=== PATIENT | female | born 2000 | race Caucasian/White ===

== ENCOUNTER 2021-04-17 14:47 | Emergency (ER) | payer OTHER, SELFPAY ==
--- NOTE | ~2021-04-17 | XR_ITS ---
EXAMINATION: XR knee LT 3V EXAM DATE: 04/17/2021 15:18 INDICATION: fall 3 days ago. TECHNIQUE: Three projections of the left knee. There is no prior study for comparison. FINDINGS: No evidence osteochondral defect or joint body in the left knee joint. There are no acute fractures or dislocations identified. There is no subcutaneous gas. The soft tissue is unremarkab le. There are no radiopaque foreign bodies. No joint effusion. IMPRESSION: 1. Unremarkable left knee exam. Reviewed, dictated and finalized at location B.
[2021-04-17 15:02] VITALS: BP 133/89; PULSE 83; RESP 16; TEMP 36.6; O2SAT 100
--- NOTE | 2021-04-17 15:46 | ED.LOWEXIN ---
HPI - Extremity Injury (Lower) General Chief Complaint: Extremity Injury, Lower Stated Complaint: lt knee injury Source: patient Mode of arrival: ambulatory Limitations: no limitations History of Present Illness HPI Narrative: Patient is a 20-year-old female who presents complaining of left knee pain. Patient reports twisting knee approximately 2 to 3 days ago. She reports using knee brace. She states it feels weird . She reports rest, ice and elevation. She denies other injuries. She denies other complaints at this time. Related Data Home Medications Medication Instructions Recorded Confirmed No Home Medications 04/17/21 04/17/21 Allergies Allergy/AdvReac Type Severity Reaction Status Date / Time No Known Allergies Allergy Verified 04/17/21 15:19 Review of Systems Review of Systems: CONSTITUTIONAL: Denies fever, chills, or sweats. EYES: Denies visual changes, redness, or discharge. ENT: Denies rhinorrhea, congestion, sore throat, or otalgia. CARDIOVASCULAR: Denies chest pain, palpitations, or edema. RESPIRATORY: Denies cough or dyspnea. GASTROINTESTINAL: Denies abdominal pain, nausea, vomiting, or diarrhea. GENITOURINARY: Denies dysuria or hematuria. SKIN: Denies rash or itching. MUSCULOSKELETAL: Reports left knee pain NEUROLOGIC: Denies headache, numbness, dizziness, or weakness. PSYCHIATRIC: Denies anxiety or depression. [facility] Social History Social History (Updated 04/17/21 @ 15:55 by SALLY Alonso) Smoking status: Never smoker Alcohol intake: never Substance use: never Occupation/Education: student Comments At the time of signature, I have reviewed and agree with nursing past medical, surgical, social, and family history unless otherwise noted. Please see nursing chart for further information. There is no relevant family history pertinent to the presenting complaint. Exam Narrative: GENERAL: Well-appearing, well-nourished, and in no acute distress. HEAD: Normocephalic, atraumatic. EYES: EOMI. No redness or drainage. Conjunctiva are normal. ENT: Mucous membranes pink and moist. CHEST: No respiratory distress. HEART: Regular rate and rhythm. EXTREMITIES: Normal range of motion. No edema. Tenderness with palpation to left medial knee. No visible deformities, no edema noted SKIN: Warm, dry, no rash. NEURO: No focal deficits. Alert and oriented x3. Gait steady. PSYCH: Normal affect. No signs of depression or anxiety. Course Vital Signs Vital signs: Vital Signs Temperature 36.6 C 04/17/21 15:02 Pulse Rate 83 04/17/21 15:02 Respiratory Rate 16 04/17/21 15:02 Blood Pressure 133/89 04/17/21 15:02 Pulse Oximetry 100 04/17/21 15:02 Temperature 36.6 C 04/17/21 15:02 Pulse Rate 83 04/17/21 15:02 Respiratory Rate 16 04/17/21 15:02 Blood Pressure 133/89 04/17/21 15:02 Pulse Oximetry 100 04/17/21 15:02 Reviewed-patient is informed that they may have pre-hypertension or hypertension based on a blood pressure reading. I recommend the patient call the primary care provider listed on their discharge instructions or a physician of their choice this week to arrange follow-up for further evaluation of possible pre-hypertension or hypertension. MDM - Extremity Injury (Lower) MDM Narrative Medical decision making narrative: Patient's x-ray shows no acute osseous abnormality. Discussed with patient following up with orthopedics for further evaluation. Patient agrees with plan of care. Patient is stable for discharge home with outpatient follow-up as discussed. Critical Care Time Critical Care Time Critical Care Time: No Discharge Plan Discharge Clinical Impression: Knee pain Qualifiers: Chronicity: acute Laterality: left Qualified Code(s): M25.562 - Pain in left knee Patient Disposition: Home, Self-Care Condition: Stable Instructions: Knee Sprain (DC), Knee Pain (ED) Additional Instructions: Use Ulices wrap for comfort. Follow-up
== END 2021-04-17 16:00 | disposition home or self-care (01) ==
PROVIDERS: Emergency Provider Nurse Practitioner
DX: M25.562 Pain in left knee (principal)
CPT/HCPCS: 73562; 99213; G0463

== ENCOUNTER 2021-05-08 14:33 | Outpatient (CLI) | payer OTHER, SELFPAY ==
--- NOTE | ~2021-05-08 | MR_ITS ---
EXAMINATION: MR knee LT wo con DATE: 05/08/2021 15:23 INDICATION: Unspecified left lower leg injury presenting with medial left knee pain TECHNIQUE: Magnetic resonance imaging (MRI) of the left knee was performed without intravenous contra st. Sequences included coronal PD-weighted FSE, coronal PD-weighted FS FSE, sagittal T2-weighted FSE , sagittal PD-weighted FS FSE and axial PD weighted fat saturated FSE. COMPARISON: None. FINDINGS: Medial compartment: Medial meniscus is normal. Articular cartilage is normal. Lateral compartment: Lateral meniscus is normal. Articular cartilage is normal. Patellofemoral compartment: Articular cartilage is normal. Ligaments and tendons: Anterior and posterior cruciate ligaments are normal. The fibular collateral ligament complex is norm al. There is increased fluid signal extending along the deep and superficial margin of the medial col lateral ligament. The ligament appears thickened distally with a 2 cm at and below the level of the k nee joint line and appears attenuated more distally consistent with at least moderate grade sprain (p artial tear) of the distal tendon. There does appear to be some laxity with a wavy course to the liga ment at and slightly above level of the joint line which suggests possibility of a full-thickness tea r. The patellar tendon is normal. Mild tendinopathy without discrete tear at the lateral patellar ins ertion of the distal quadriceps tendon. The visualized medial and lateral hamstring tendons as well a s the iliotibial band are normal. Fluid: Physiologic amount of fluid in the joint space. No loose osteochondral bodies identified. Osseous/other: There is marrow edema surrounding a small nondisplaced impaction fracture along the lateral rim of th e posterior weightbearing lateral femoral condyle with small low signal intensity subarticular fractu re line. No signal is otherwise normal. No pathologic marrow replacing process. IMPRESSION: 1. High-grade partial if not complete tear of the distal medial collateral ligament. 2. Small nondisplaced impaction fracture along the lateral rim of the posterior weightbearing lateral femoral condyle. Reviewed, dictated and finalized at location B. IMPRESSION: 1. High-grade partial if not complete tear of the distal medial collateral liga ment. 2. Small nondisplaced impaction fracture along the lateral rim of the posterior weightbearing lateral femoral condyle.
== END 2021-05-08 14:34 ==
PROVIDERS: Visit Provider Orthopaedic Surgery
DX: S89.92XA Unspecified injury of left lower leg, initial encounter (principal); S83.412A Sprain of medial collateral ligament of left knee, initial encounter; S72.425A Nondisplaced fracture of lateral condyle of left femur, initial encounter for closed fracture
CPT/HCPCS: 73721

== ENCOUNTER 2021-11-09 14:05 | Emergency (ER) | payer OTHER, SELFPAY ==
--- NOTE | ~2021-11-09 | XR_ITS ---
EXAMINATION: XR wrist LT min 3V EXAM DATE: 11/09/2021 14:53 INDICATION: gen Pain Lt wrist x several months; no injury. TECHNIQUE: Left wrist frontal, frontal with ulnar deviation, oblique and lateral projections obtained and reviewed. There is no prior study for comparison. FINDINGS: Left wrist scapholunate joint space is maintained. There is ulnar minus variance. There ar e no acute fractures or dislocations identified. There is no subcutaneous gas. The soft tissue is u nremarkable. There are no radiopaque foreign bodies. The joint spaces are uniform. There are no sergio ny erosions identified. IMPRESSION: Ulnar minus variance. Reviewed, dictated and finalized at location A. IMPRESSION: Ulnar minus variance.
[2021-11-09 14:12] VITALS: BP 146/85; PULSE 85; RESP 16; TEMP 36.4; O2SAT 98
--- NOTE | 2021-11-09 14:29 | ED.EXTPRO ---
HPI - Extremity Problem General Chief complaint: Extremity Problem,Nontraumatic Stated complaint: Left wrist pain Time Seen by Provider: 11/09/21 14:22 Source: patient, RN notes reviewed and old records reviewed Mode of arrival: ambulatory Limitations: no limitations History of Present Illness HPI Narrative: 30 year old female who presents to express care with complaints of discomfort to the inner aspect of her left wrist since around middle part of August with no known injury to her wrist. Patient denies any tingling or numbness to her hand or fingers, states pain is worse with movement. Patient is able to make a fist with no pain,able to hyperflex wrist with no pain, but extension of wrist causes increase in her pain. Patient reports that she has not taken anything for her pain, denies any know swelling to her wrist or any coldness of left hand. patient is right hand dominant. MD Complaint: extremity pain (left wrist) Onset (ago): month(s) (3) Pain Consistency: intermittent Location: left and upper extremity (inner wrist) Severity scale (1-10): 7 Quality: other (shooting pain) Related Data Home Medications Medication Instructions Recorded Confirmed No Home Medications 04/17/21 11/09/21 Allergies Allergy/AdvReac Type Severity Reaction Status Date / Time No Known Allergies Allergy Verified 11/09/21 14:12 Review of Systems Review of Systems: CONSTITUTIONAL: Denies fever, chills, or sweats. EYES: Denies visual changes, redness, or discharge. ENT: Denies rhinorrhea, congestion, sore throat, or otalgia. CARDIOVASCULAR: Denies chest pain, palpitations, or edema. RESPIRATORY: Denies cough or dyspnea. GASTROINTESTINAL: Denies abdominal pain, nausea, vomiting, or diarrhea. GENITOURINARY: Denies dysuria or hematuria. SKIN: Denies rash or itching. MUSCULOSKELETAL: Denies back pain, positive for left inner wrist pain, or myalgia. NEUROLOGIC: Denies headache, numbness, or weakness. PSYCHIATRIC: Denies anxiety or depression. All systems reviewed & are unremarkable except as noted in HPI and below PMFSH Past Medical History Medical History Chills Congestion of nasal sinus Fever Left knee injury Surgical History Surgical History H/O elbow surgery repair of fracture of left radial head with hardware Social History Social History Smoking status: Never smoker Alcohol intake: current Substance use: never Substance use type: does not use Gender identity (if verbalized by the patient): Female Comments At time of signature, agree with nursing past medical, surgical, social and family history. There is no relevant family history pertinent to the presenting complaint Exam Narrative: GENERAL: Well-appearing, well-nourished, and in no acute distress. HEAD: Normocephalic, atraumatic. EYES: PERRLA and EOMI. ENT: Nares clear, no rhinorrhea or epistaxis. Mucous membranes moist.TM's normal with good light reflex, throat pink with no exudates or lesions or tonsil swelling NECK: Supple. no lymphadenopathy CHEST: Clear to auscultation. No respiratory distress SAO2 98% on room air. HEART: Regular rate and rhythm. No murmur heard. Normal peripheral pulses. ABDOMEN: Soft, nontender, nondistended, normal active bowel sounds. EXTREMITIES: Normal range of motion. No edema noted, reports pain to inner left wrist with flexion of her left wrist, denies any pain with hyper extension left wrist and make a fist with no pain but has pain with flexion of hand, denies any tingling or numbness to finger with full mobility of fingers without discomfort. SKIN: Warm, dry, no rash. NEURO: No focal deficits. Alert and oriented x3. Course Course Level of Care: Express Care Visit Vital Signs Vital signs: Vital Signs Temperature 36.4 C L 11/09/21 14:12 Pulse Rate 85 11/09/21
== END 2021-11-09 15:17 | disposition home or self-care (01) ==
PROVIDERS: Emergency Provider Registered Nurse
DX: M25.532 Pain in left wrist (principal)
CPT/HCPCS: 73110; 99213; G0463

== ENCOUNTER 2024-09-19 14:31 | Emergency (ER) | payer OTHER, SELFPAY ==
--- NOTE | ~2024-09-19 | XR_ITS ---
CHEST RADIOGRAPH, PA AND LATERAL CLINICAL HISTORY: left sided back pain . COMPARISON: None available TECHNIQUE: PA and lateral views of the chest. FINDINGS The cardiomediastinal silhouette is unremarkable. The lungs are clear. Visualized osseous structures and soft tissues are unremarkable. IMPRESSION: No focal infiltrate or effusion. Reviewed, dictated and finalized at location A. LE HOUSE PUMPER
--- OUTSIDE RECORDS SUMMARY | 2024-09-19 14:33 | XMS_ITS | Clinical Summary ---
Author Organization [address] Address [address] [facility] [address] [place] [address] Care Team Providers Care Stapler Machine Name Role Phone Lucio, Maribel BENNETT Primary Care Provider [phone] Allergies No known active allergies Medications escitalopram (LEXAPRO) 10 mg tabletIndicatio ns:ANGEL (generalized anxiety disorder),Mild episode of recurrent major depressive disorder (HCC) Take 1 tablet (10 mg total) by mouth daily 30 tablet 1 08/06/2024 Active cyanocobalamin (Vitamin B-12) 1,000 mcg tabletIndicatio ns:Prevention of Vitamin B12 Deficiency Take 1 tablet (1,000 mcg total) by mouth daily Active cholecalciferol (VITAMIN D-3) 2000 unit capsule Take 1 capsule (2,000 Units total) by mouth daily Active ibuprofen 200 mg tab/cap Take 2 tablet/capsu le (400 mg total) by mouth every 6 (six) hours as needed for pain Active metroNIDAZOLE (FLAGYL) 500 mg tablet Take 1 tablet (500 mg total) by mouth 2 (two) times a day for 7 days 14 tablet 08/18/2024 08/25/19 25 Active Problems No known active problems Encounters Date Type Department Care Team Description 09/11/2024 10:01 AM GEL COATER Anesthesia Event [facility] [place] [address] [place] [address] Rolando Koenig MD Leavell, Michael E., MD 09/11/2024 9:50 AM GEL COATER - 09/11/2024 10:55 AM GEL COATER Surgery [facility] [place] [address] [place] [address] Maximo Seay IV, MD EXCISION LEFT THIGH MASS 09/11/2024 7:09 AM GEL COATER - 09/11/2024 12:04 PM GEL COATER Hospital Encounter [facility] [place] [address] [place] [address] Maximo Seay IV, MD Mass of left thigh Discharge Disposition: Discharge to home or self care 09/08/2024 10:30 AM GEL COATER Office Visit [facility] [address] [facility] [address] [place] [phone] Maribel Valdes NP ANGEL (generalized anxiety disorder) (Primary Dx); Mild episode of recurrent major depressive disorder (HCC); Vitamin B12 deficiency; Vitamin D deficiency 08/18/2024 Telephone [facility] [address] [place] [address] Arabella Hoyt LPN 08/14/2024 Telephone [facility] [address] [place] [address] Arabella Hoyt LPN 08/13/2024 11:52 AM GEL COATER - 08/13/2024 11:59 PM GEL COATER Hospital Encounter [facility] [address] [place] [address] Screening for malignant neoplasm of the cervix Discharge Disposition: Discharge to home or self care 08/13/2024 11:50 AM GEL COATER Lab [facility] [address] [place] [address] Oligomenorrhea, unspecified type; Fatigue, unspecified type 08/13/2024 11:00 AM GEL COATER Office Visit [facility] [address] [facility] [address] [place] [address] Tiffanie Quach, Encounter for annual routine gynecological examination (Primary Dx); Screening for malignant neoplasm of the cervix; Primary oligomenorrhea 08/13/2024 Orders Only [facility] [address] [place] [address] Tiffanie Quach DO Oligomenorrhea, unspecified type (Primary Dx) 08/06/2024 11:30 AM GEL COATER Office Visit [address] [place] [address] Maribel Valdes NP Left groin mass (Primary Dx); ANGEL (generalized anxiety disorder); Mild episode of recurrent major depressive disorder (HCC) 07/13/[address] [place] [address] Maribel Valdes NP 07/07/2024 10:33 AM GEL COATER - 07/07/2024 11:59 PM GEL COATER Hospital En[place] [facility] [place] [address] [place] [phone] Left groin mass Discharge Disposition: Discharge to home or self care 06/30/2024 1:25 PM GEL COATER Lab [facility] Lab [address] [place] [address] Annual physical exam 06/30/2024 12:30 PM GEL COATER Office Visit [address] [place] [phone] Maribel Valdes NP Annual physical exam (Primary Dx); Left groin mass; Morbid obesity with BMI of 40.0-44.9, adult (HCC); Cervical cancer screening from Last 3 Months Immunizations Name Administration Dates Next Due DTaP 04/29/2007, 3,06/17/2002,03/18/2002, 01/14/2002 HPV9 05/03/2016,12/21/2015,10/21/2015 Hep A, Adult 04/29/2007 Hep A, Pediatric 03/19/2012 Hep B / HiB 03/17/2003,06/17/2002,01/14/2002 Hep B, Adolescent or Pediatric 03/18/2002 HiB 03/18/2002,01/14/2002 IPV 04/29/2007,06/17/2002,03/18/2002 ,01/14/2002 Influenza, Unspecified 06/30/2024(Deferr ed: Patient Refused),05/05/2023(Deferred: Patient Refused) MMR 04/29/2007,03/17/2003 Meningococcal B, OMV (Bexsero) 03/21/2020,2018 Meningococcal MCV4P (Menactra) 03/19/2019,2015 PPD TEST 08/02/2021,04/02/2019,03/19/2019 Pneumococcal Conjugate 7-Valent 03/17/2003,03/18,01/14/2002 Tdap 02/24/2013 Varicella 08/15/2021,07/15/2021 Surgical History Surgery Date Site/Laterality Comments ELBOW SURGERY 08/05/2016 - 08/04/2017 Left head of radial fracture screws present Medical History Medical History Date Comments GERD (gastroesophageal reflux disease) controlled with diet Depression Polycystic ovarian syndrome PCOS (polycystic ovarian syndrome) not on any medications yet Anxiety Mass of left thigh Last menstrual period (LMP) > 10 days ago ended 08/25/24 Obesity Family History Medical History Relation Name Comments Addiction problem Father ruth cardiomegly Father ruth Addiction problem Maternal Grandfather fatty liver Maternal Grandfather Cholecystitis Maternal Grandmother Addiction problem Mother tacos Ovarian cysts Mother tacos Polycystic ovary syndrome Mother tacos Relation Name Status Comments Father ruth Alive Maternal Grandfather Maternal Grandmother Mother tacos Alive Social History Tobacco Use Types Packs/Day Years Used Date Smoking Tobacco: Former Cigarettes 0.3 7.7 0 08/22/2016 - 05/22/2024 Smokeless Tobacco: Never Tobacco Cessation:Counseling Given: Not Answered Comments:Still vapes AUDIT-C Answer Date Recorded Q1: How often do you have a drink containing alc ohol? Monthly or less 09/08/2024 Q2: How many drinks containi ng alcohol do you have on a typical day when you are drinking? 1 or 2 09/08/2024 Frequency of Binge Drinking Not on file 11/2024 PHQ-2 Answer Date Recorded PHQ-2 Total Score (If total score is 3 or more points, staff should administer the PHQ-9) 0 06/30/2024 Personal Safety Answer Date Recorded Have you ever been in or are you currently in a harmful physical or emotional relationship or is someone making you feel afraid or unsafe? Denies 09/11/2024 Comments No Sex and Gender Information Value Date Recorded Sex Assigned at Not on file Legal Sex Female 10:23 AM CDT Gender Identity Female 05/19/2024 10:33 AM CDT Sexual Orientation Straight 05/19/2024 10 :33 AM CDT Obstetrics History Last Filed Vital Signs Vital Sign Reading Time Taken Comments Blood Pressure 114/67 09/11/2024 11:41 AM GEL COATER Pulse 51 09/11/2024 11:41 AM GEL COATER Temperature 36.4 C (97.5 F) 09/11/2024 11:05 AM GEL COATER Respiratory Rate 18 09/11/2024 11:4 1 AM GEL COATER Oxygen Saturation 97% 09/11/2024 11: 41 AM GEL COATER Inhaled Oxygen Concentration - - Weight 111.1 kg (244 lb 14.4 oz) 09/11/2024 8:03 AM GEL COATER Height 168.9 cm (5' 6.5 ) 09/08/2024 10 :44 AM GEL COATER Body Mass Index 38.94 09/08/2024 10:44 AM GEL COATER Plan of Treatment Upcoming Encounters Date Type Department Care Team (Latest Contact Info) Description 10/08/2024 1:55 PM GEL COATER Hospital Encounter [facility] [place] [address] [place] [address] Maximo Seay IV, MD [address] [place] [address] 10/08/2024 1:55 PM GEL COATER - 10/08/2024 3:45 PM GEL COATER Surgery [facility] [place] [address] [place] [address] Maximo Seay IV, MD [address] [place] [phone] WIDE LOCAL EXCISION 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 Scheduled Procedures Name Priority Associated Diagnoses Date/Ti me EXCISION CYST/LESION/MASS - LOWER EXTREMITY 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 10/08/2024 1:55 PM GEL COATER Health Maintenance Due Date Last Done Comments Hepatitis C Screening 2001 Regular Well Visit/Exam 18-64 2019 DTaP/Tdap/Td Vaccine (7 - Td or Tdap) 02/24/2023 02/24/2013, 04/29/2007, 03/17/2003, Additional history exists Influenza Vaccine (#1) 2025 Postp oned from 04/05/2024 (Patient declined, but will receive in the future) Depression Screening 06/30/2025 06/30/2024 Cervical Cancer Screening 08/13/2025 08/13/2024 Hepatitis B Screening Completed 03/17/2003 , 06/17/2002, 03/18/2002, Additional history exists Pneumococcal vaccine <65 Completed 003, 03/18/2002, 01/14/2002 HPV Vaccines Completed 05/03/2016, 12/03, 10/21/2015 Meningococcal B Vaccine Completed 03/21/2020, 03/19 Varicella Vaccines Completed 08/15/2021, 07/15/2021 Medical Devices Implanted Type Area Grocery Deliverer Device Identifier Shelf Expiration Date Model / Serial / Lot 2 Screws Left: Elbow Procedures Procedure Name Priority Date/Time Associated Diagnosis Comments IA AN PROCEDURE PLACEHOLDER Routine 09/11/2024 10:19 AM GEL COATER IA AN ELECTIVE SUPRAGLOTTIC AIRWAY Routine 09/11/2024 10:19 AM GEL COATER SURGICAL PATHOLOGY Routine 09/11/2024 10 :15 AM GEL COATER Mass of left thigh EXCISION CYST/LESION/MASS - LOWER EXTREMITY 09/11/2024 10:01 AM GEL COATER LEFT THIGH MASS POCT HCG, URINE Routine 09/11/2024 7:30 AM GEL COATER THINPREP PROCESSING (MOLECULAR COMPONENT) Routine 08/13/2024 2:47 PM GEL COATER Screening for malignant neoplasm of the cervix IRON PROFILE W/ IBC Routine 08/13/2024 1 1:46 AM GEL COATER Fatigue, unspecified type VITAMIN D 25 HYDROXY Routine 08/13/2024 11:46 AM GEL COATER Fatigue, unspecified type VITAMIN B12 Routine 08/13/2024 11:46 AM GEL COATER Fatigue, unspecified type ESTRADIOL Routine 08/13/2024 11:46 AM GEL COATER Oligomenorrhea, unspecified type PROLACTIN Routine 08/13/2024 11:46 AM GEL COATER Oligomenorrhea, unspecified type TOTAL TESTOSTERONE Routine 08/13/2024 11 :46 AM GEL COATER Oligomenorrhea, unspecified type LUTEINIZING HORMONE (LH) Routine 08/13/2024 11:46 AM GEL COATER Oligomenorrhea, unspecified type FOLLICLE STIMULATING HORMONE Routine 08/13/2024 11:46 AM GEL COATER Oligomenorrhea, unspecified type HEMOGLOBIN A1C Routine 08/13/2024 11:46 AM GEL COATER Oligomenorrhea, unspecified type PAP WITH REFLEX TO HIGH RISK HPV Routine 08/13/2024 11:10 AM GEL COATER Screening for malignant neoplasm of the cervix US GROIN MASS/HERNIA LEFT Schedule Routine, Read Routine (OP Routine) 07/07/2024 11:00 AM GEL COATER Left groin mass EGFR Routine 06/30/2024 1:28 PM GEL COATER Annual physical exam DIFFERENTIAL AUTO Routine 06/30/2024 1:2 8 PM GEL COATER Annual physical exam CBC WITH AUTO DIFFERENTIAL Routine 06/30/2024 1:28 PM GEL COATER Annual physical exam COMPREHENSIVE METABOLIC PANEL Routine 06/30/2024 1:28 PM GEL COATER Annual physical exam THYROID FUNCTION CASCADE Routine 06/30/2024 1:28 PM GEL COATER Annual physical exam LIPID PANEL Routine 06/30/2024 1:28 PM GEL COATER Annual physical exam from Last 3 Months Results * IA AN ELECTIVE SUPRAGLOTTIC AIRWAY, IA AN PROCEDURE PLACEHOLDER (09/11/2024 10:19 AM GEL COATER) Narrative Jamey Denny CRNA - 09/11/2024 10:19 AM GEL COATER Jamey Denny CRNA 09/11/2024 10:19 AM Airway Patient location: OR Urgency: elective Indications for airway management: anesthesia Difficult airway: no Staff: Placed by: LICENSED MASSAGE THERAPIST: Jamey Denny CRNA Emergent airway documentation: Risks and benefits discussed: yes Consent obtained: yes Consent given by: patient Airway prep: Preoxygenated: yes Patient position: sniffing Mask difficulty assessment: 1 - vent by mask Spontaneous ventilation during airway: absent Sedation level during airway: GA Final airway details: Final airway type: supraglottic airway Final supraglottic airway: classic SGA size: 4 Number of attempts: 1no Rolando Koenig MD ANESTHESIA ORDERABLE S Final Result * Surgical pathology (09/11/2024 10:15 AM GEL COATER) Tissue (Mass/Tumor/Lesio n) 09/11/2024 10:15 AM GEL COATER Narrative PATHOLOGY [facility] - 09/16/2024 1:34 PM GEL COATER [facility] Department of Pathology [address] [place] [address] Note to Patients: This report may contain a detailed description of human tissue sent by a health care provider to the laboratory for pathologic evaluation. The content of this report is essential for diagnosis and may provide important critical findings. This information may be unfamiliar to patients to review without a medical professional present. It is advised that the patient review this report in the presence of a health care provider who can answer questions and explain the details. Final Report Patient Name: EMBER RAMIREZ : 2000 (Age: 23) Gender: F Address: [address] [place] [address] Hospital #: [id number] Service: Surgery Location: Patient Type: [facility] Taken: 09/11/2024 Received: 09/11/2024 Accessioned: 09/11/2024 Reported: 09/16/2024 Physician(s): Betty Simpson IV, F.N.P. 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 Report Electronically Reviewed and Signed Out By Ramu Roy M.D. 09/16/2024 13:34:50 Specimen(s) Received: A: Left thigh mass Microscopic Description: Immunohistochemical studies show tumor cells are positive for S100 protein, while negative for MART-1, HMB-45, desmin, keratin AE1/AE3 and SMA. Immunohistochemical studies show tumor cells are positive for S100 protein, while negative for MART-1, HMB-45, desmin, keratin AE1/AE3 and SMA. Clinical History: The patient is a 23-year-old woman with a left thigh mass. Operative procedure: Excision left thigh mass. Gross Description Received in formalin, labeled with the patient s identifiers and left thigh mass and consists of a 3.0 x 1.6 cm unoriented, light mcpherson, grossly unremarkable skin ellipse with attached soft tissue measuring 1.5 cm in thickness (inked blue). Sectioning reveals a mcpherson-white, firm, fibrotic lesion within the soft tissue measuring approximately 2.2 x 1.9 x 1.4 cm. The lesion abuts the peripheral and deep soft tissue margins. No hemorrhage or necrosis is grossly identified. The specimen is entirely submitted as follows: A1 Opposing tip margins, en face (true margins embedded down) A2-A5 Remaining specimen, sequentially submitted. Jar 0. jjmhb/09/11/2024 13:53 MUMTAZ Gandara, [facility]THI [facility] Microscopic slide review and interpretation for this case was performed at [facility], Department of Surgical Pathology, [address] [facility], [place] [id number], [place] [address] CLIA # [id number] The HMB-45 test was performed at [facility] Department of Surgical Pathology, [address] [place] [address]. The Desmin test was performed at [facility], Department of Surgical Pathology, [address] [place] [address]. Maximo Seay IV, MD LAB PATHOLOGY ORDERABL ES Final Result Performing Organization Address City/[facility]/ZIP Co de Phone Number PATHOLOGY [facility] * POCT hCG, urine (09/11/2024 7:30 AM GEL COATER) Pathologist [facility] HCG, ur, POC Negative Negative Lot Number [id number] QC Backgroud Clear Acceptable QC Control Line Acceptable Urine 09/11/2024 7:30 AM GEL COATER Shalom Ferrell MD POINT OF CARE TEST ORDERAB LES Final Result * ThinPrep processing (Molecular component) (08/13/2024 2:47 PM GEL COATER) [facility] ThinPrep processing (Molecular component) Specimen received for processing. [facility] Comment:Testing performed by : [facility], [address] [place]., [address] Endocervical 08/13/2024 2:47 PM GEL COATER 08/14/2024 6:39 PM GEL COATER Tiffanie Quach DO LAB BODY FLUIDS AND STO OLS ORDERABLES Final Result Performing Organization Address [facility] Co de Phone Number [address] [place] [address] [facility] * (ABNORMAL) Iron profile w/ IBC (08/13/2024 11:46 AM GEL COATER) [facility] Iron 38 35 - 145 mcg/dl Comment:Testing performed by : [address] [address] TIBC 326 250 - 400 mcg/dL [facility] Comment:Testing performed by : [address] [address] Transferrin saturation 12(L) 20 - 50 % [facility] Comment:Testing performed by : [address] [place]., [address] Blood 08/13/2024 11:4 6 AM GEL COATER 08/13/2024 10:20 PM GEL COATER Maribel Lucio DOT ETCHER LAB BLOOD ORDERABLES Final Res ult Performing Organization Address [facility] Co de Phone Number K[facility]Y [address] [place] [address] * (ABNORMAL) Vitamin D 25 hydroxy (08/13/2024 11:46 AM GEL COATER) Vitamin D 25-OH 24(L) 30 - 80 ng/mL Comment:Testing performed by : [facility], [address] [place] [address]., [address] Blood 08/13/2024 11:4 6 AM GEL COATER 08/13/2024 10:20 PM GEL COATER Maribel Valdes DOT [employer] LAB BLOOD ORDERABLES Final Res ult Performing Organization Address [facility] de Phone Number KACY [address] [facility] [place] [address] * Prolactin (08/13/2024 11:46 AM GEL COATER) Prolactin 18.3 4.8 - 23.3 ng/mL Comment:Testing performed by : [facility], [address] [place] [address]., [address] Blood 08/13/2024 11:4 6 AM GEL COATER 08/13/2024 10:20 PM GEL COATER Tiffanie Quach DO LAB BLOOD ORDERABLES Fi nal Result Performing Organization Address [facility] Co de Phone Number KACY [address] [address] [place] [address] * Estradiol (08/13/2024 11:46 AM GEL COATER) Estradiol 95.9 pg/mL Comment: Interpretive Data Males: 11 43 pg/mL Females: Premenopausal: 31 533 pg/mL Postmenopausal: < 50 pg/mL Patients treated with Fluvestrant (Faslodex) should be tested using an alternate assay such as LC-MS due to potential for cross-reactivity. Estradiol varies widely throughout the menstrual cycle. Current interpretive data was last revised 2024. Testing performed by: [facility], [address] [place]., [address] Blood 08/13/2024 11:4 6 AM GEL COATER 08/14/2024 10:04 AM GEL COATER Tiffanie Quach DO LAB BLOOD ORDERABLES Fi nal Result Performing Organization Address City/[facility]/ZIP Co de Phone Number [place] [phone] [facility] [place] [address] * Total testosterone (08/13/2024 11:46 AM GEL COATER) Testosterone 41 8 - 48 ng/dL Comment:Testing performed by : [facility], [address] [place] [address]., [address] Blood 08/13/2024 11:4 6 AM GEL COATER 08/13/2024 10:20 PM GEL COATER Tiffanie Quach DO LAB BLOOD ORDERABLES Fi nal Result Performing Organization Address City/[facility]/ZIP Co de Phone Number [place] [phone] [facility] [place] [address] * Hemoglobin A1c (08/13/2024 11:46 AM GEL COATER) Hgb A1C 5.3 4.0 - 5.6 % Comment:Testing performed by : [address] [address] Estimated Average Glucose 105 mg/dL [facility] Comment: The ADA recommends reporting an estimated Average Glucose (eAG) with all Hemoglobin A1c results using the equation derived from a study of 507 normal and diabetic adults. Minority populations were underrepresented and children were not included. (Diabetes Care 31:1985-6296, 2008). The eAG is not equivalent to a fasting glucose. Testing performed by: [facility], [address] [place]., [address] Blood 08/13/2024 11:4 6 AM GEL COATER 08/13/2024 10:21 PM GEL COATER Tiffanie Katarinasolange Quach DO LAB BLOOD ORDERABLES Fi nal Result Performing Organization Address [facility] Co de Phone Number KACY SIMMONS [address] [place] [address] * LH (08/13/2024 11:46 AM GEL COATER) LH 11.4 IUnits/L Comment: Interpretive Data Males: Adults: 1.7 - 8.6 IUnits/L Females: Follicular: 2.4 - 12.6 IUnits/L Ovulation: 14.0 - 95.6 IUnits/L Luteal: 1.0 - 11.4 IUnits/L Postmenopausal: 7.7 - 58.5 IUnits/L Current interpretive data was last revised on 2019. Testing performed by: [facility], [address] [place]., [address] Blood 08/13/2024 11:4 6 AM GEL COATER 08/14/2024 10:04 AM GEL COATER Tiffanie Quach DO LAB BLOOD ORDERABLES Fi nal Result Performing Organization Address [facility] Co de Phone Number ANGELICAJAIME [address] [place] [address] * Follicle stimulating hormone (08/13/2024 11:46 AM GEL COATER) FSH 3.4 IUnits/L Comment: Interpretive Data Male: Adults: 1.5 - 12.4 IUnits/L Female: Follicular: 3.5 - 12.5 IUnits/L Ovulation: 4.7 - 21.5 IUnits/L Luteal: 1.7 - 7.7 IUnits/L Postmenopausal: 25.8 - 134.8 IUnits/L Current interpretive data was last revised 2015. Testing performed by: [facility], [address] [place]., [address] Blood 08/13/2024 11:4 6 AM GEL COATER 08/14/2024 10:04 AM GEL COATER Tiffanie Quach DO LAB BLOOD ORDERABLES Fi nal Result Performing Organization Address [facility]/ZIP Co de Phone Number KACY [facility] Department [place] [address] * (ABNORMAL) Vitamin B12 (08/13/2024 11:46 AM GEL COATER) Vitamin B12 213(L) 230 - 1,250 pg/mL Comment:Testing performed by : [facility], [address] [place] [address]., [address] Blood 08/13/2024 11:4 6 AM GEL COATER 08/13/2024 10:20 PM GEL COATER Maribel Valdes DOT [employer] LAB BLOOD ORDERABLES Final Res ult Performing Organization Address [facility] de Phone Number KACY [facility] [place] [address] * Pap with reflex to High Risk HPV and Genotyping (Cytology Component) (08/13/2024 11:10 AM GEL COATER) Thin prep (Pap test) 08/13/2024 11:10 AM GEL COATER 08/13/2024 11:10 AM GEL COATER Narrative PATHOLOGY - 08/17/2024 3:25 PM GEL COATER [facility] Department of Pathology [address] [place] [address] Final Report Note to Patients: This report may contain a detailed description of human tissue sent by a health care provider to the laboratory for pathologic evaluation. The content of this report is essential for diagnosis and may provide important critical findings. This information may be unfamiliar to patients to review without a medical professional present. It is advised that the patient review this report in the presence of a health care provider who can answer questions and explain the details. Patient Name: EMBER RAMIREZ Address: [address], [place] [address] Gender: F : 2000 (Age: 23) Service: Location: [facility] #: [id number] Patient Type: [facility] SPECIMEN Taken: 08/13/2024 Received: 08/13/2024 Accessioned:: 08/14/2024 Reported: 08/17/2024 Physician(s): Naila Hinkle D.O. Diagnosis: SOURCE OF SPECIMEN Imaged Thinprep Pap Test w/ Reflex HPV - Control And Recovery Special Tactics Cytologic Material: STATEMENT OF ADEQUACY - Specimen satisfactory for interpretation; endocervical/transformation zone component absent or insufficient GENERAL CATEGORIZATION: - Negative for intraepithelial lesion or malignancy INTERPRETATION: - Predominance of coccobacilli consistent with shift in vaginal ivanna. Possible bacterial vaginosis VARUN James(ASCP)VARUN Huitron(ASCP) Report Electronically Reviewed and Signed Out By VARUN Hiutron(ASCP) 08/17/2024 15:25:40Specimen(s) Received: A: Imaged Thinprep Pap Test w/ Reflex HPV - Control And Recovery Special Tactics Cytologic Material Clinical History: Last Menstrual Period: 07/19/2024 The Pap test is a screening test used to aid in the detection of cervical cancer and its precursors. It should not be the sole means by which malignant and premalignant lesions are diagnosed. Both false negative and false positive results may occur. It also has poor sensitivity for the detection of endometrial lesions and should not be used to evaluate suspected endometrial abnormalities. For these reasons it is most important to obtain Pap tests at regular intervals. The performance characteristics of some immunohistochemical stains, fluorescence in-situ hybridization tests and immunophenotyping by flow cytometry cited in this report (if any) were determined by the Surgical Pathology Department at [facility] as part of an ongoing water quality tester program and in compliance with federally mandated regulations drawn from the Clinical Laboratory Improvement Act of 1988 (CLIA '88). Some of these tests rely on the use of analyte specific reagents and are subject to specific labeling requirements by the US Food and Drug Administration. Such diagnostic tests may only be performed in a facility that is certified by the Department of Health and Human Services as a high complexity laboratory under CLIA '88. The FDA has determined that such clearance or approval is not necessary. This test is used for clinical purposes. It should not be regarded as investigational or for research. Nevertheless, federal rules concerning the medical use of analyte specific reagents require that the following disclaimer be attached to the report: This test was developed and its performance characteristics determined by the Surgical Pathology Department [facility]. It has not been cleared or approved by the U. S. Food and Drug Administration. Tiffanie Quach DO LAB CYTOLOGY ORDERABLES Final Result PATHOLOGY [address] [place] [address] * US Groin Mass Hernia Left (07/07/2024 11:00 AM GEL COATER) Anatomical Region Laterality Modality Abdomen Left Ultrasound 07/08/2024 6:18 PM GEL COATER Narrative 07/08/2024 6:20 PM GEL COATER EXAM DESCRIPTION: US GROIN MASS HERNIA LEFT REASON FOR STUDY: Left groin superior thigh palpable area for 6 years with recent increase in size. TECHNIQUE: A Dynamic assessment was performed of the left groin by the customer support engineer, with selected grayscale and color Doppler images acquired and recorded in PACS. COMPARISON: None available FINDINGS: SKIN AND SUBCUTANEOUS TISSUES: None within the subcutaneous tissues is a irregular heterogeneous hypoechoic area with areas of shadowing measuring 2.1 x 2.5 x 1.5 cm. No definite internal flow on color Doppler imaging is seen. This is indeterminate. Recommend further evaluation with contrast enhanced MRI. DEEP SOFT TISSUES/MUSCLES: No masses. No fluid collections. No edema. OTHER: No other significant finding. IMPRESSION: Irregular heterogeneous hypoechoic area with areas of shadowing measuring 2.1 x 2.5 x 1.5 cm. This is indeterminate. Recommend further evaluation with contrast enhanced MRI. THIS IS AN ELECTRONICALLY VERIFIED FINAL REPORT 07/08/2024 6:20 PM - Electronically signed by Sam SCHNEIDER T: Report ID: [id number] Reading Location: [id number] Procedure Note Sam Grace MD - 07/08/2024 EXAM DESCRIPTION: US GROIN MASS HERNIA LEFT REASON FOR STUDY: Left groin superior thigh palpable area for 6 years with recent increase in size. TECHNIQUE: A Dynamic assessment was performed of the left groin by the customer support engineer, with selected grayscale and color Doppler images acquired and recorded in PACS. COMPARISON: None available FINDINGS: SKIN AND SUBCUTANEOUS TISSUES: None within the subcutaneous tissues is a irregular heterogeneous hypoechoic area with areas ofshadowing measuring 2.1 x 2.5 x 1.5 cm. No definite internal flow on color Doppler imaging is seen. This is indeterminate. Recommend further evaluationwith contrast enhanced MRI. DEEP SOFT TISSUES/MUSCLES: No masses. No fluid collections. No edema. OTHER: No other significant finding. IMPRESSION: Irregular heterogeneous hypoechoic area with areas of shadowing measuring2.1 x 2.5 x 1.5 cm. This is indeterminate. Recommend further evaluation with contrast enhanced MRI. THIS IS AN ELECTRONICALLY VERIFIED FINAL REPORT 07/08/2024 6:20 PM - Electronically signed by Sam SCHNEIDER T: Report ID: [id number] Reading Location: [place] [address] us Maribel Valdes NP IMG US PROCEDURES Final Result * eGFR (06/30/2024 1:28 PM GEL COATER) eGFR >90 >=60 mL/min/1. 73 m2 Comment: Interpretive Data Reference Interval Normal >/= 90 mL/min/1.73m2 Mildly decreased* 60 - 89 mL/min/1.73m2 Mildly to moderately decreased 45 - 59 mL/min/1.73m2 Moderately to severely decreased 30 - 44 mL/min/1.73m2 Severely decreased 15 - 29 mL/min/1.73m2 Kidney Failure < 15 mL/min/1.73m2 *Relative to young adult level Estimated glomerular filtration rate is determined by the 2020 CKD-EPI equation recommended by the National Kidney [employer] (A Unifying Approach to GFR Estimation: Recommendations of the NKF-ASK Task Force on Reassessing the Inclusion of Race in Diagnosing Kidney Disease, JASN 2020). The CKD-EPI equation should not be used for patients with unstable renal function and has not been validated in children and those over 70. Current interpretive data was last reviewed 2021. Blood 06/30/2024 1:28 PM GEL COATER 06/30/2024 1:41 PM GEL COATER us Maribel Valdes NP LAB BLOOD ORDERABLES Final Res ult [facility] [address] [facility] Department [place] [address] * (ABNORMAL) Differential, auto (06/30/2024 1:28 PM GEL COATER) Neutrophil abs 6.7(H) 1.5 - 6.5 K/cumm Imm gran abs 0.0 0.0 - 0.1 K/cumm [facility] Lymphocyte abs 2.5 0.8 - 3.3 K/cumm [facility] Monocyte abs 0.5 0.2 - 0.8 K/cumm [facility] Eosinophil abs 0.1 0.0 - 0.5 K/cumm [facility] Basophil abs 0.0 0.0 - 0.1 K/cumm [facility] Neutrophil pct 67.8 % [facility] Comment: Interpretive Data Percent cell count reference ranges are not reported, since discordance with absolute values may lead to misinterpretation of CBC data. Current Interpretive Data was last revised on 2017. Imm gran pct 0.3 % [facility] Comment: Interpretive Data Percent cell count reference ranges are not reported, since discordance with absolute values may lead to misinterpretation of CBC data. Current Interpretive Data was last revised on 2017. Lymphocyte pct 25.1 % [facility] Comment: Interpretive Data Percent cell count reference ranges are not reported, since discordance with absolute values may lead to misinterpretation of CBC data. Current Interpretive Data was last revised on 2017. Monocyte pct 5.5 % [facility] Comment: Interpretive Data Percent cell count reference ranges are not reported, since discordance with absolute values may lead to misinterpretation of CBC data. Current Interpretive Data was last revised on 2017. Eosinophil pct 1.0 % [facility] Comment: Interpretive Data Percent cell count reference ranges are not reported, since discordance with absolute values may lead to misinterpretation of CBC data. Current Interpretive Data was last revised on 2017. Basophil pct 0.3 % [facility] Comment: Interpretive Data Percent cell count reference ranges are not reported, since discordance with absolute values may lead to misinterpretation of CBC data. Current Interpretive Data was last revised on 2017. Blood 06/30/2024 1:28 PM GEL COATER 06/30/2024 1:41 PM GEL COATER Maribel Valdes DOT ETCHER LAB BLOOD ORDERABLES Final Res ult Performing Organization Address [facility] Co de Phone Number [address] [place] [address] * Thyroid Function [place] (06/30/2024 1:28 PM GEL COATER) [facility] TSH 2.40 0.30 - 4.20 mcIUnit/mL Blood 06/30/2024 1:28 PM GEL COATER 06/30/2024 1:41 PM GEL COATER Maribel Lucio LAB BLOOD ORDERABLES Final Res ult Performing Organization Address [facility] de Phone Number [address] [address] * (ABNORMAL) CBC with auto differential (06/30/2024 1:28 PM GEL COATER) [facility] WBC 9.9 3.8 - 9.9 K/cumm Hgb 13.0 11.9 - 15.5 g/dL [facility] Hct 38.7 35.6 - 45.5 % [facility] Plt 318 150 - 400 K/cumm [facility] MPV 9.0(L) 9.1 - 12.3 fL [facility] RBC 4.46 3.90 - 5.20 M/cumm [facility] MCV 86.8 81.3 - 96.4 fL [facility] MCH 29.1 27.1 - 33.3 pg [facility] MCHC 33.6 32.3 - 35.7 g/dL [facility] RDW CV 12.8 11.1 - 14.9 % [facility] RDW SD 40.3 35.7 - 48.1 fL [facility] NRBC abs 0.00 0.00 - 0.01 K/cumm [facility] Blood 06/30/2024 1:28 PM GEL COATER 06/30/2024 1:41 PM GEL COATER us Maribel Valdes NP LAB BLOOD ORDERABLES Final Res ult [facility] [address] [facility] Department [place] [address] * (ABNORMAL) Lipid panel (06/30/2024 1:28 PM GEL COATER) Cholesterol 145 30 - 199 mg/dL Comment: Interpretive Data Ages < or = 19 years Acceptable: <170 mg/dL Borderline high: 170-199 mg/dL High: >or= 200 mg/dL Ages > or = 20 years Desirable: <200 mg/dL Borderline high: 200-239 mg/dL High: >or= 240 mg/dL Literature References: 1. Expert Panel on Integrated Guidelines for Cardiovascular Health and Risk Reduction in Children and Adolescents. Pediatrics 2011;128:S213 2. NCEP Expert Panel. Circulation 2004;110:227 Current Interpretive Data was last revised on 2018. Triglycerides 117 <=149 mg/dL [facility] Comment: Interpretive Data Ages < or = 9 years Acceptable: <75 mg/dL Borderline high: 75-99 mg/dL High: >or= 100 mg/dL Ages 10 to 20 years Acceptable: <90 mg/dL Borderline high: 90-129 mg/dL High: >or= 130 mg/dL Ages > or = 20 years Desirable: <150 mg/dL Borderline high: 150-199 mg/dL High: 200-499 mg/dL Very high: >or= 499 mg/dL Literature References: 1. Expert Panel on Integrated Guidelines for Cardiovascular Health and Risk Reduction in Children and Adolescents. Pediatrics 2011;128:S213 2. NCEP Expert Panel. Circulation 2004;110:227 Current Interpretive Data was last revised on 2018. HDL 36(L) >=40 mg/dL [facility] Comment: Interpretive Data Ages < or = 19 years Acceptable: >45 mg/dL Borderline low: 40-45 mg/dL Low: <40 mg/dL Ages > or = 20 years Desirable: >or= 60 mg/dL Low: <40 mg/dL Literature References: 1. Expert Panel on Integrated Guidelines for Cardiovascular Health and Risk Reduction in Children and Adolescents. Pediatrics 2011;128:S213 2. NCEP Expert Panel. Circulation 2004;110:227 Current Interpretive Data was last revised on 2018. LDL, calculated 88 <=129 mg/dL [facility] AGGARWAL Comment: Interpretive Data Ages < or = 19 years Acceptable: <110 mg/dL Borderline high: 110-129 mg/dL High: >or= 130 mg/dL Ages > or = 20 years Optimal: <100 mg/dL Near optimal: 100-129 mg/dL Borderline high: 130-159 mg/dL High: >160 mg/dL Calculated using the Prashant LDL-C estimating equation. This equation was implemented on 2024. Prior to this date LDL-C was estimated using the Friedewald equation. Literature References: 1. Expert Panel on Integrated Guidelines for Cardiovascular Health and Risk Reduction in Children and Adolescents. Pediatrics 2011;128:S213 2. NCEP Expert Panel. Circulation 2004;110:227 3. Prashant Vivas al. NEAL Cardiol. 2019December 03;5(5):540-548. doi: [email or web address] Current Interpretive Data was last revised on 2024. Non-HDL Cholesterol 109 mg/dL [facility] Comment: Interpretive Data Ages < or = 19 years Acceptable: <120 mg/dL Borderline high: 120-144 mg/dL High: >145 mg/dL Ages > or = 20 years When triglycerides are >200 mg/dL, Non-HDL cholesterol is a secondary target of therapy with treatment goals that are 30 mg/dL greater than the LDL cholesterol target. Literature References: 1. Expert Panel on Integrated Guidelines for Cardiovascular Health and Risk Reduction in Children and Adolescents. Pediatrics 2011;128:S213 2. NCEP Expert Panel. Circulation 2004;110:227 Current Interpretive Data was last revised on 2018. Chol/HDL ratio 4 [facility] Blood 06/30/2024 1:28 PM GEL COATER 06/30/2024 1:41 PM GEL COATER us Maribel Valdes NP LAB BLOOD ORDERABLES Final Res ult [facility] [address] [facility] Department [place] [address] * Comprehensive metabolic panel (06/30/2024 1:28 PM GEL COATER) Sodium 139 135 - 145 mmol/L Potassium, pl 4.1 3.3 - 4.9 mmol/L [facility] Chloride 107 97 - 110 mmol/L [facility] CO2 22 22 - 32 mmol/L [facility] Anion gap 10 2 - 15 mmol/L [facility] BUN 12 6 - 25 mg/dL [facility] Creatinine 0.65 0.60 - 1.10 mg/dL [facility] Glucose 93 70 - 199 mg/dL [facility] Comment: Interpretive Data Fasting glucose >/= 126 mg/dl is diagnostic for diabetes. Fasting is defined as no caloric intake for at least 8 hours. Fasting glucose between 100 mg/dl to 125 mg/dl is diagnostic of prediabetes. In a patient with classic symptoms of hyperglycemia or hyperglycemic crisis, a random glucose >/= 200 mg/dl is diagnostic for diabetes. In the absence of unequivocal hyperglycemia, results should be confirmed by repeat testing. The classification and Diagnosis of Diabetes Diabetes Care 202; 46: S19-S40. Current interpretive data was last revised 2022. Calcium 9.2 8.5 - 10.3 mg/dL [facility] Bilirubin, total 0.4 0.1 - 1.2 mg/dL [facility] Protein, pl 7.0 6.5 - 8.5 g/dL [facility] Albumin 4.5 3.5 - 5.0 g/dL [facility] Alk phos 55 40 - 130 Units/L [facility] ALT 13 7 - 45 Units/L [facility] AST 16 10 - 45 Units/L [facility] Blood 06/30/2024 1:28 PM GEL COATER 06/30/2024 1:41 PM GEL COATER us Maribel Valdes NP LAB BLOOD ORDERABLES Final Res ult [facility] [address] [facility] Department [place] [address] from Last 3 Months Insurance [facility] [place] [address] Care Teams Stapler Machine Relationship Specialty Start Date End Date Maribel Valdes NP [address] [place] [address] PCP - General Family Medicine 06/30/24
--- OUTSIDE RECORDS SUMMARY | 2024-09-19 14:33 | XMS_ITS | Referral Summary ---
Author Organization [address] Address [address] [facility] [address] [place] [address] Care Team Providers Care Transporter Driver Name Role Phone Maribel Valdes NP Primary Care Provider [phone] Encounters Date Type Department Care Team Description 09/11/2024 9:50 AM FINANCIAL SERVICES DIRECTOR - 09/11/2024 10:55 AM FINANCIAL SERVICES DIRECTOR Surgery [facility] OR [address] [place] [address] Maximo Seay IV, MD EXCISION LEFT THIGH MASS 09/11/2024 10:01 AM FINANCIAL SERVICES DIRECTOR Anesthesia Event [facility] OR [address] [place] [address] Rolando Koenig MD Leavell, Michael E., MD 09/11/2024 7:09 AM FINANCIAL SERVICES DIRECTOR - 09/11/2024 12:04 PM FINANCIAL SERVICES DIRECTOR Hospital Encounter [facility] OR [address] [place] [address] Maximo Seay IV, MD Mass of left thigh Discharge Disposition: Discharge to home or self care 09/08/2024 10:30 AM FINANCIAL SERVICES DIRECTOR Office Visit [facility] [address] [facility] [address] [place] [address] Maribel Valdes NP ANGEL (generalized anxiety disorder) (Primary Dx); Mild episode of recurrent major depressive disorder (HCC); Vitamin B12 deficiency; Vitamin D deficiency 08/18/2024 Telephone [facility] [address] [place] [address] Arabella HoytJami, ZYGLO TECHNICIAN 08/14/2024 Telephone [facility] [address] [place] [address] Arabella HoytJmai, ZYGLO TECHNICIAN 08/13/2024 11:52 AM FINANCIAL SERVICES DIRECTOR - 08/13/2024 11:59 PM FINANCIAL SERVICES DIRECTOR Hospital Encounter [facility] [address] [facility] [address] [place] [address] Screening for malignant neoplasm of the cervix Discharge Disposition: Discharge to home or self care 08/13/2024 11:50 AM FINANCIAL SERVICES DIRECTOR Lab [facility] [address] [facility] [address] [place] [address] Oligomenorrhea, unspecified type; Fatigue, unspecified type 08/13/2024 [facility] [address] [facility] [address] [place] [address] Tiffanie Quach DO Oligomenorrhea, unspecified type (Primary Dx) 08/13/2024 11:00 AM FINANCIAL SERVICES DIRECTOR [facility] [address] [facility] [address] [place] [address] Tiffanie Quach DO Encounter for annual routine gynecological examination (Primary Dx); Screening for malignant neoplasm of the cervix; Primary oligomenorrhea 08/06/2024 11:30 AM FINANCIAL SERVICES DIRECTOR Office Visit [facility] [address] [place] [address] [address] [place] [address] Maribel Valdes NP Left groin mass (Primary Dx); ANGEL (generalized anxiety disorder); Mild episode of recurrent major depressive disorder (HCC) 07/13/2024 Telephone [facility] [facility] [address] [place] [address] Maribel Valdes NP 07/07/2024 10:33 AM FINANCIAL SERVICES DIRECTOR - 07/07/2024 11:59 PM FINANCIAL SERVICES DIRECTOR Hospital Encounter [facility] [place] [facility] [address] [place] [address] Left groin mass Discharge Disposition: Discharge to home or self care 06/30/2024 1:25 PM FINANCIAL SERVICES DIRECTOR Lab [facility] [address] [place] [address] Annual physical exam 06/30/2024 12:30 PM FINANCIAL SERVICES DIRECTOR Office Visit [facility] [address] [facility] [address] [place] [phone] Maribel Valdes, SABRINA Annual physical exam (Primary Dx); Left groin mass; Morbid obesity with BMI of 40.0-44.9, adult (HCC); Cervical cancer screening from Last 3 Months Allergies No known active allergies Medications escitalopram [...] 25 Active Problems No known active problems Immunizations Name Administration Dates Next Due DTaP [...] Conjugate 7-Valent 03/17/2003,03/18,01/14/2002 Tdap 02/24/2013 Varicella 08/15/2021,07/15/2021 Social History Tobacco Use Types Packs/Day Years [...] Orientation Straight 05/19/2024 10 :33 AM CDT Last Filed Vital Signs Vital Sign Reading Time Taken Comments Blood Pressure 114/67 09/11/2024 11:41 AM FINANCIAL SERVICES DIRECTOR Pulse 51 09/11/2024 11:41 AM FINANCIAL SERVICES DIRECTOR Temperature 36.4 C (97.5 F) 09/11/2024 11:05 AM FINANCIAL SERVICES DIRECTOR Respiratory Rate 18 09/11/2024 11:4 1 AM FINANCIAL SERVICES DIRECTOR Oxygen Saturation 97% 09/11/2024 11: 41 AM FINANCIAL SERVICES DIRECTOR Inhaled Oxygen Concentration - - Weight 111.1 kg (244 lb 14.4 oz) 09/11/2024 8:03 AM FINANCIAL SERVICES DIRECTOR Height 168.9 cm (5' 6.5 ) 09/08/2024 10 :44 AM FINANCIAL SERVICES DIRECTOR Body Mass Index 38.94 09/08/2024 10:44 AM FINANCIAL SERVICES DIRECTOR Plan of Treatment Upcoming Encounters Date Type Department Care Team (Latest Contact Info) Description 10/08/2024 1:55 PM FINANCIAL SERVICES DIRECTOR Hospital Encounter [facility] OR [address] [place] [address] Maximo Seay IV, MD [address] [place] [address] 10/08/2024 1:55 PM FINANCIAL SERVICES DIRECTOR - 10/08/2024 3:45 PM FINANCIAL SERVICES DIRECTOR Surgery [facility] OR [address] [place] [address] Maximo Seay IV, MD [address] [place] [id number] WIDE LOCAL EXCISION 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 Scheduled Procedures Name Priority Associated Diagnoses Date/Ti me EXCISION CYST/LESION/MASS - LOWER EXTREMITY 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 10/08/2024 1:55 PM FINANCIAL SERVICES DIRECTOR Medical Devices Implanted Type Area Field Gauger Device Identifier Shelf Expiration Date Model / Serial / Lot 2 Screws Left: Elbow Procedures Procedure Name Priority Date/Time Associated Diagnosis Comments HI AN PROCEDURE PLACEHOLDER Routine 09/11/2024 10:19 AM FINANCIAL SERVICES DIRECTOR HI AN ELECTIVE SUPRAGLOTTIC AIRWAY Routine 09/11/2024 10:19 AM FINANCIAL SERVICES DIRECTOR SURGICAL PATHOLOGY Routine 09/11/2024 10 :15 AM FINANCIAL SERVICES DIRECTOR Mass of left thigh EXCISION CYST/LESION/MASS - LOWER EXTREMITY 09/11/2024 10:01 AM FINANCIAL SERVICES DIRECTOR LEFT THIGH MASS POCT HCG, URINE Routine 09/11/2024 7:30 AM FINANCIAL SERVICES DIRECTOR THINPREP PROCESSING (MOLECULAR COMPONENT) Routine 08/13/2024 2:47 PM FINANCIAL SERVICES DIRECTOR Screening for malignant neoplasm of the cervix IRON PROFILE W/ IBC Routine 08/13/2024 1 1:46 AM FINANCIAL SERVICES DIRECTOR Fatigue, unspecified type VITAMIN D 25 HYDROXY Routine 08/13/2024 11:46 AM FINANCIAL SERVICES DIRECTOR Fatigue, unspecified type VITAMIN B12 Routine 08/13/2024 11:46 AM FINANCIAL SERVICES DIRECTOR Fatigue, unspecified type ESTRADIOL Routine 08/13/2024 11:46 AM FINANCIAL SERVICES DIRECTOR Oligomenorrhea, unspecified type PROLACTIN Routine 08/13/2024 11:46 AM FINANCIAL SERVICES DIRECTOR Oligomenorrhea, unspecified type TOTAL TESTOSTERONE Routine 08/13/2024 11 :46 AM FINANCIAL SERVICES DIRECTOR Oligomenorrhea, unspecified type LUTEINIZING HORMONE (LH) Routine 08/13/2024 11:46 AM FINANCIAL SERVICES DIRECTOR Oligomenorrhea, unspecified type FOLLICLE STIMULATING HORMONE Routine 08/13/2024 11:46 AM FINANCIAL SERVICES DIRECTOR Oligomenorrhea, unspecified type HEMOGLOBIN A1C Routine 08/13/2024 11:46 AM FINANCIAL SERVICES DIRECTOR Oligomenorrhea, unspecified type PAP WITH REFLEX TO HIGH RISK HPV Routine 08/13/2024 11:10 AM FINANCIAL SERVICES DIRECTOR Screening for malignant neoplasm of the cervix US GROIN MASS/HERNIA LEFT Schedule Routine, Read Routine (OP Routine) 07/07/2024 11:00 AM FINANCIAL SERVICES DIRECTOR Left groin mass EGFR Routine 06/30/2024 1:28 PM FINANCIAL SERVICES DIRECTOR Annual physical exam DIFFERENTIAL AUTO Routine 06/30/2024 1:2 8 PM FINANCIAL SERVICES DIRECTOR Annual physical exam CBC WITH AUTO DIFFERENTIAL Routine 06/30/2024 1:28 PM FINANCIAL SERVICES DIRECTOR Annual physical exam COMPREHENSIVE METABOLIC PANEL Routine 06/30/2024 1:28 PM FINANCIAL SERVICES DIRECTOR Annual physical exam THYROID FUNCTION CASCADE Routine 06/30/2024 1:28 PM FINANCIAL SERVICES DIRECTOR Annual physical exam LIPID PANEL Routine 06/30/2024 1:28 PM FINANCIAL SERVICES DIRECTOR Annual physical exam from Last 3 Months Results * HI AN ELECTIVE SUPRAGLOTTIC AIRWAY, HI AN PROCEDURE PLACEHOLDER (09/11/2024 10:19 AM FINANCIAL SERVICES DIRECTOR) Narrative Jamey Denny CRNA - 09/11/2024 10:19 AM FINANCIAL SERVICES DIRECTOR Jamey Denny CRNA 09/11/2024 10:19 AM Airway Patient location: OR Urgency: elective Indications for airway management: anesthesia Difficult airway: no Staff: Placed by: ANALYTIC PROGRAMMER: Jamey Denny, TYLER Emergent airway documentation: Risks and benefits discussed: [...] Result * Surgical pathology (09/11/2024 10:15 AM FINANCIAL SERVICES DIRECTOR) Tissue (Mass/Tumor/Lesio n) 09/11/2024 10:15 AM FINANCIAL SERVICES DIRECTOR Narrative PATHOLOGY [facility] - 09/16/2024 1:34 PM FINANCIAL SERVICES DIRECTOR [facility] Department of Pathology [address] [place] [address] Note to Patients: This report may contain [...] : 2000 (Age: 23) Gender: F Address: [address] [place] [address] [address] [place] [address] Hospital #: [id number] Service: Surgery Location: Patient Type: [facility] OUTPATIENT Taken: 09/11/2024 Received: 09/11/2024 Accessioned: [...] embedded down) A2-A5 Remaining specimen, sequentially submitted. Kelli 0. jjb/09/11/2024 13:53 MUMTAZ Gandara, PA (ASCP) Microscopic slide review and interpretation for this case was performed at [facility] Department of Surgical Pathology, [address] [id number], [place] [address] CLIA # [id number] The HMB-45 test was performed at [facility] Department of Surgical Pathology, [address] [facility], [place] [address]. The Desmin test was performed at [facility] Department of Surgical Pathology, [address] [facility], [place] [address]. Maximo Seay IV, MD LAB PATHOLOGY ORDERABL ES Final Result Performing Organization Address City/[facility]/ZIP Co de Phone Number PATHOLOGY [facility] * POCT hCG, urine (09/11/2024 7:30 AM FINANCIAL SERVICES DIRECTOR) Pathologist [facility] HCG, ur, POC Negative Negative Lot Number [id number] QC Backgroud Clear Acceptable QC Control Line Acceptable Urine 09/11/2024 7:30 AM FINANCIAL SERVICES DIRECTOR Shalom Ferrell MD POINT OF CARE TEST ORDERAB LES Final Result * ThinPrep processing (Molecular component) (08/13/2024 2:47 PM FINANCIAL SERVICES DIRECTOR) [facility] ThinPrep processing (Molecular component) Specimen received for processing. [facility] Comment:Testing performed by : [facility], [address] [facility], [place]., [address] Endocervical 08/13/2024 2:47 PM FINANCIAL SERVICES DIRECTOR 08/14/2024 6:39 PM FINANCIAL SERVICES DIRECTOR us Tiffanie Quach DO LAB BODY FLUIDS AND STO OLS ORDERABLES Final Result Performing Organization Address City/[facility]/ZIP Co de Phone Number KACY SIMMONS [address] [address] Department [place] [address] [facility] * (ABNORMAL) Iron profile w/ IBC (08/13/2024 11:46 AM FINANCIAL SERVICES DIRECTOR) Iron 38 35 - 145 mcg/dl Comment:Testing performed by : [facility], [address] [place] [address], [address] TIBC 326 250 - 400 mcg/dL KACY Comment:Testing performed by : [facility], [address] [place] [address], [id number] Transferrin saturation 12(L) 20 - 50 % KACY Comment:Testing performed by : [facility], [address] [place] [address], [address] Blood 08/13/2024 11:4 6 AM FINANCIAL SERVICES DIRECTOR 08/13/2024 10:20 PM FINANCIAL SERVICES DIRECTOR Maribel Valdes ROBOT DESIGNER LAB BLOOD ORDERABLES Final Res ult Performing Organization Address [facility] Co de Phone Number [place] [phone] [facility] [employer] [place] [address] * (ABNORMAL) Vitamin D 25 hydroxy (08/13/2024 11:46 AM FINANCIAL SERVICES DIRECTOR) Pathologist [facility] Vitamin D 25-OH 24(L) 30 - 80 ng/mL Comment:Testing performed by : [address], [address] Blood 08/13/2024 11:4 6 AM FINANCIAL SERVICES DIRECTOR 08/13/2024 10:20 PM FINANCIAL SERVICES DIRECTOR Maribel Valdes ROBOT DESIGNER LAB BLOOD ORDERABLES Final Res ult Performing Organization Address [facility] Co de Phone Number [place] [phone] [facility] [employer] [place] [address] * Prolactin (08/13/2024 11:46 AM FINANCIAL SERVICES DIRECTOR) Pathologist [facility] Prolactin 18.3 4.8 - 23.3 ng/mL Comment:Testing performed by : [address], [address] Blood 08/13/2024 11:4 6 AM FINANCIAL SERVICES DIRECTOR 08/13/2024 10:20 PM FINANCIAL SERVICES DIRECTOR Tiffanie Katarina Philomena DO LAB BLOOD ORDERABLES Fi nal Result KACY [address] Department [place] [address] * Estradiol (08/13/2024 11:46 AM FINANCIAL SERVICES DIRECTOR) Estradiol 95.9 pg/mL Comment: Interpretive Data Males: 11 43 pg/mL Females: Premenopausal: 31 533 pg/mL Postmenopausal: < 50 pg/mL Patients treated with Fluvestrant (Faslodex) should be tested using an alternate assay such as LC-MS due to potential for cross-reactivity. Estradiol varies widely throughout the menstrual cycle. Current interpretive data was last revised 2024. Testing performed by: [facility], [address] [place] [address]., [address] Blood 08/13/2024 11:4 6 AM FINANCIAL SERVICES DIRECTOR 08/14/2024 10:04 AM FINANCIAL SERVICES DIRECTOR Tiffanie Quach DO LAB BLOOD ORDERABLES Fi nal Result Performing Organization Address [facility] Co de Phone Number KACY [address] Department of [employer] [place] [address] * Total testosterone (08/13/2024 11:46 AM FINANCIAL SERVICES DIRECTOR) Pathologist [facility] Testosterone 41 8 - 48 ng/dL Comment:Testing performed by : [facility], [address] [place] [address]., [address] Blood 08/13/2024 11:4 6 AM FINANCIAL SERVICES DIRECTOR 08/13/2024 10:20 PM FINANCIAL SERVICES DIRECTOR Tiffanie Katarinasolange Quach DO LAB BLOOD ORDERABLES Fi nal Result KACY SIMMONS [address] [address] Department of [employer] [place] [address] * Hemoglobin A1c (08/13/2024 11:46 AM FINANCIAL SERVICES DIRECTOR) Pathologist [facility] Hgb A1C 5.3 4.0 - 5.6 % Comment:Testing performed by : [facility], [address] [place] [address]., [address] Estimated Average Glucose 105 mg/dL KACY SIMMONS Comment: The ADA recommends reporting an estimated Average Glucose (eAG) with all Hemoglobin A1c results using the equation derived from a study of 507 normal and diabetic adults. Minority populations were underrepresented and children were not included. (Diabetes Care 31:9235-9394, 2008). The eAG is not equivalent to a fasting glucose. Testing performed by: [facility], [address] [place] [address]., [address] Blood 08/13/2024 11:4 6 AM FINANCIAL SERVICES DIRECTOR 08/13/2024 10:21 PM FINANCIAL SERVICES DIRECTOR Tiffanie Quach LAB BLOOD ORDERABLES Fi nal Result Performing Organization Address City/[facility] Co de Phone Number KACY [address] [address] Department [place] [address] * LH (08/13/2024 11:46 AM FINANCIAL SERVICES DIRECTOR) LH 11.4 IUnits/L Comment: Interpretive Data Males: Adults: 1.7 - 8.6 IUnits/L Females: Follicular: 2.4 - 12.6 IUnits/L Ovulation: 14.0 - 95.6 IUnits/L Luteal: 1.0 - 11.4 IUnits/L Postmenopausal: 7.7 - 58.5 IUnits/L Current interpretive data was last revised on 2019. Testing performed by: [facility], [address] [place]., [address] Blood 08/13/2024 11:4 6 AM FINANCIAL SERVICES DIRECTOR 08/14/2024 10:04 AM FINANCIAL SERVICES DIRECTOR Tiffanie Quach DO LAB BLOOD ORDERABLES Fi nal Result Performing Organization Address City/[facility] Co de Phone Number KACY [address] [address] Department [place] [address] * Follicle stimulating hormone (08/13/2024 11:46 AM FINANCIAL SERVICES DIRECTOR) FSH 3.4 IUnits/L Comment: Interpretive Data Male: Adults: 1.5 - 12.4 IUnits/L Female: Follicular: 3.5 - 12.5 IUnits/L Ovulation: 4.7 - 21.5 IUnits/L Luteal: 1.7 - 7.7 IUnits/L Postmenopausal: 25.8 - 134.8 IUnits/L Current interpretive data was last revised 2015. Testing performed by: [facility], [address] [place] [address], [address] Blood 08/13/2024 11:4 6 AM FINANCIAL SERVICES DIRECTOR 08/14/2024 10:04 AM FINANCIAL SERVICES DIRECTOR Tiffanie Quach DO LAB BLOOD ORDERABLES Fi nal Result Performing Organization Address City/[facility]/ZIP Co de Phone Number KACY [address] [address] Department [place] [address] * (ABNORMAL) Vitamin B12 (08/13/2024 11:46 AM FINANCIAL SERVICES DIRECTOR) Vitamin B12 213(L) 230 - 1,250 pg/mL Comment:Testing performed by : [facility], [address] [place] [address], [address] Blood 08/13/2024 11:4 6 AM FINANCIAL SERVICES DIRECTOR 08/13/2024 10:20 PM FINANCIAL SERVICES DIRECTOR Maribel Valdes ROBOT DESIGNER LAB BLOOD ORDERABLES Final Res ult [facility] [address] [address] Department [place] [address] * Pap with reflex to High Risk HPV and Genotyping (Cytology Component) (08/13/2024 11:10 AM FINANCIAL SERVICES DIRECTOR) Thin prep (Pap test) 08/13/2024 11:10 AM FINANCIAL SERVICES DIRECTOR 08/13/2024 11:10 AM FINANCIAL SERVICES DIRECTOR Narrative PATHOLOGY [facility] - 08/17/2024 3:25 PM FINANCIAL SERVICES DIRECTOR [facility] Department of Pathology [address] [place], [place] [id number] Final Report Note to Patients: This report [...] the details. Patient Name: EMBER RAMIREZ Address: [address], [place] [address] Gender: F : 2000 (Age: 23) Service: Location: [facility] : [id number] Hospital #: [id number] Patient Type: [facility] SPECIMEN Taken: 08/13/2024 Received: 08/13/2024 Accessioned:: 08/14/2024 Reported: 08/17/2024 Physician(s): Naila Hinkle D.O. Diagnosis: SOURCE OF SPECIMEN Imaged Thinprep Pap Test w/ Reflex HPV - Maintenance Shop Welder Cytologic Material: STATEMENT OF ADEQUACY - Specimen satisfactory for interpretation; endocervical/transformation zone component absent or insufficient GENERAL CATEGORIZATION: - Negative for intraepithelial lesion or malignancy INTERPRETATION: - Predominance of coccobacilli consistent with shift in vaginal ivanna. Possible bacterial vaginosis VARUN James(ASCP)VARUN Huitron(ASCP) Report Electronically Reviewed and Signed Out By VARUN Huitron(ASCP) 08/17/2024 15:25:40Specimen(s) Received: A: Imaged Thinprep Pap Test w/ Reflex HPV - Maintenance Shop Welder Cytologic Material Clinical History: Last Menstrual Period: [...] determined by the Surgical Pathology Department at [facility] as part of an ongoing housing quality standard inspector program and in compliance with federally mandated [...] characteristics determined by the Surgical Pathology Department [facility]. It has not been cleared or approved by the U. S. Food and Drug Administration. Tiffanie Quach DO LAB CYTOLOGY ORDERABLES Final Result PATHOLOGY [address] [place] [address] * US Groin Mass Hernia Left (07/07/2024 11:00 AM FINANCIAL SERVICES DIRECTOR) Anatomical Region Laterality Modality Abdomen Left Ultrasound 07/08/2024 6:18 PM FINANCIAL SERVICES DIRECTOR Narrative 07/08/2024 6:20 PM FINANCIAL SERVICES DIRECTOR EXAM DESCRIPTION: US GROIN MASS HERNIA LEFT REASON FOR STUDY: Left groin superior thigh palpable area for 6 years with recent increase in size. TECHNIQUE: A Dynamic assessment was performed of the left groin by the electronics manufacturer, with selected grayscale and color Doppler images [...] signed by Sam SCHNEIDER T: Report ID: [id number] Reading Location: [id number] Procedure Note Sam Grace MD - 07/08/2024 EXAM DESCRIPTION: US GROIN MASS HERNIA LEFT REASON FOR STUDY: Left groin superior thigh palpable area for 6 years with recent increase in size. TECHNIQUE: A Dynamic assessment was performed of the left groin by the electronics manufacturer, with selected grayscale and color Doppler images [...] signed by Sam SCHNEIDER T: Report ID: [id number] Reading Location: [place] [address] us Maribel Valdes NP IMG US PROCEDURES Final Result * eGFR (06/30/2024 1:28 PM FINANCIAL SERVICES DIRECTOR) eGFR >90 >=60 mL/min/1. 73 m2 Comment: [...] last reviewed 2021. Blood 06/30/2024 1:28 PM FINANCIAL SERVICES DIRECTOR 06/30/2024 1:41 PM FINANCIAL SERVICES DIRECTOR us Maribel Valdes NP LAB BLOOD ORDERABLES Final Res ult [facility] [address] [facility] [address] [facility] [place] [address] * (ABNORMAL) Differential, auto (06/30/2024 1:28 PM FINANCIAL SERVICES DIRECTOR) Neutrophil abs 6.7(H) 1.5 - 6.5 K/cumm Imm gran abs 0.0 0.0 - 0.1 K/cumm [facility] Lymphocyte abs 2.5 0.8 - 3.3 K/cumm [facility] Monocyte abs 0.5 0.2 - 0.8 K/cumm [facility] Eosinophil abs 0.1 0.0 - 0.5 K/cumm [facility] Basophil abs 0.0 0.0 - 0.1 K/cumm [facility] Neutrophil pct 67.8 % [facility] Comment: Interpretive Data Percent cell count reference ranges are not reported, since discordance with absolute values may lead to misinterpretation of CBC data. Current Interpretive Data was last revised on 2017. Imm gran pct 0.3 % [facility] Comment: Interpretive Data Percent cell count reference ranges are not reported, since discordance with absolute values may lead to misinterpretation of CBC data. Current Interpretive Data was last revised on 2017. Lymphocyte pct 25.1 % [facility] Comment: Interpretive Data Percent cell count reference ranges are not reported, since discordance with absolute values may lead to misinterpretation of CBC data. Current Interpretive Data was last revised on 2017. Monocyte pct 5.5 % [facility] Comment: Interpretive Data Percent cell count reference ranges are not reported, since discordance with absolute values may lead to misinterpretation of CBC data. Current Interpretive Data was last revised on 2017. Eosinophil pct 1.0 % [facility] Comment: Interpretive Data Percent cell count reference ranges are not reported, since discordance with absolute values may lead to misinterpretation of CBC data. Current Interpretive Data was last revised on 2017. Basophil pct 0.3 % [facility] Comment: Interpretive Data Percent cell count reference ranges are not reported, since discordance with absolute values may lead to misinterpretation of CBC data. Current Interpretive Data was last revised on 2017. Blood 06/30/2024 1:28 PM FINANCIAL SERVICES DIRECTOR 06/30/2024 1:41 PM FINANCIAL SERVICES DIRECTOR Maribel Valdes LAB BLOOD ORDERABLES Final Res ult Performing Organization Address [facility] Co de Phone Number [address] [employer] [place] [address] * Thyroid Function [place] (06/30/2024 1:28 PM FINANCIAL SERVICES DIRECTOR) TSH 2.40 0.30 - 4.20 mcIUnit/mL Blood 06/30/2024 1:28 PM FINANCIAL SERVICES DIRECTOR 06/30/2024 1:41 PM FINANCIAL SERVICES DIRECTOR [facility] LAB BLOOD ORDERABLES Final Res ult Performing Organization Address [facility] Co de Phone Number [address] [place] [address] * (ABNORMAL) CBC with auto differential (06/30/2024 1:28 PM FINANCIAL SERVICES DIRECTOR) WBC 9.9 3.8 - 9.9 K/cumm Hgb 13.0 11.9 - 15.5 g/dL [facility] Hct 38.7 35.6 - 45.5 % [facility] Plt 318 150 - 400 K/cumm [facility] MPV 9.0(L) 9.1 - 12.3 fL [facility] RBC 4.46 3.90 - 5.20 M/cumm [facility] MCV 86.8 81.3 - 96.4 fL [facility] MCH 29.1 27.1 - 33.3 pg [facility] MCHC 33.6 32.3 - 35.7 g/dL [facility] RDW CV 12.8 11.1 - 14.9 % [facility] RDW SD 40.3 35.7 - 48.1 fL [facility] NRBC abs 0.00 0.00 - 0.01 K/cumm [facility] Blood 06/30/2024 1:28 PM FINANCIAL SERVICES DIRECTOR 06/30/2024 1:41 PM FINANCIAL SERVICES DIRECTOR us Maribel Valdes NP LAB BLOOD ORDERABLES Final Res ult [place] [id number] [facility] [place] [address] * (ABNORMAL) Lipid panel (06/30/2024 1:28 PM FINANCIAL SERVICES DIRECTOR) Pathologist [facility] Cholesterol 145 30 - 199 mg/dL Comment: [...] revised on 2018. Triglycerides 117 <=149 mg/dL [facility] Comment: Interpretive Data Ages < or = [...] on 2018. HDL 36(L) >=40 mg/dL [facility] Comment: Interpretive Data Ages < [...] 2018. LDL, calculated 88 <=129 mg/dL [facility] Comment: Interpretive Data Ages < [...] NCEP Expert Panel. Circulation 2004;110:227 3. Prashant Pierson. NEAL Cardiol. 2020 December 03;5(5):540-548. doi: [email or web address].[email or web address] Current Interpretive Data was [...] last revised on 2018. Chol/HDL ratio 4 [facility] Blood 06/30/2024 1:28 PM FINANCIAL SERVICES DIRECTOR 06/30/2024 1:41 PM FINANCIAL SERVICES DIRECTOR us Maribel Valdes NP LAB BLOOD ORDERABLES Final Res ult [facility] [address] [facility] [place] [address] * Comprehensive metabolic panel (06/30/2024 1:28 PM FINANCIAL SERVICES DIRECTOR) Sodium 139 135 - 145 mmol/L Potassium, pl 4.1 3.3 - 4.9 mmol/L [facility] Chloride 107 97 - 110 mmol/L [facility] CO2 22 22 - 32 mmol/L [facility] Anion gap 10 2 - 15 mmol/L [facility] BUN 12 6 - 25 mg/dL [facility] Creatinine 0.65 0.60 - 1.10 mg/dL [facility] Glucose 93 70 - 199 mg/dL [facility] Comment: Interpretive Data Fasting glucose >/= [...] classification and Diagnosis of Diabetes Diabetes Care 2021; 46: S19-S40. Current interpretive data was last revised 2022. Calcium 9.2 8.5 - 10.3 mg/dL [facility] Bilirubin, total 0.4 0.1 - 1.2 mg/dL [facility] Protein, pl 7.0 6.5 - 8.5 g/dL [facility] Albumin 4.5 3.5 - 5.0 g/dL [facility] Alk phos 55 40 - 130 Units/L [facility] ALT 13 7 - 45 Units/L [facility] AST 16 10 - 45 Units/L [facility] Blood 06/30/2024 1:28 PM FINANCIAL SERVICES DIRECTOR 06/30/2024 1:41 PM FINANCIAL SERVICES DIRECTOR us Maribel Valdes NP LAB BLOOD ORDERABLES Final Res ult [facility] [address] [facility] [place] [address] from Last 3 Months Insurance [facility] Care Teams Transporter Driver Relationship Specialty Start Date End Date Maribel Valdes NP [address] [place] [address] [place] [id number] PCP - General Family Medicine 06/30/24
--- OUTSIDE RECORDS SUMMARY | 2024-09-19 14:34 | XMS_ITS | Clinical Summary ---
Author Organization [facility] Address [address] [place] [address] Care Team Providers Care Boot Turner Name Role Phone Pcp, No Primary Care Provider Unavailabl e Pcp Outside [facility], Unknown Unavailable Unavail able Naresh Vasques PA-C Unavailable [phone] Allergies No known active allergies Medications Medication Sig Dispensed Refills Start Date End Date Status azithromycin (ZITHROMAX) 250 MG tabletIndications:Tons illitis with exudate Take two tabs orally today and then DAY 2-5 take one tab each day 6 tablet 10/14/2019 Active Active Problems No known active problems Resolved Problems Problem Noted Date Diagnosed Date Resolved Date Tonsillitis with exudate 10/14/2019 Immunizations Name Administration Dates Next Due DTaP 04/29/2007, 3,06/17/2002,03/18,01/14/2002 HIB Hep B 03/17/2003,06/17/2002,01/14/2002 HIB, Unspecified Formulation 03/18/2002,01/15/20 02 HPV 9-Valent 05/03/2016,12/21/2015,10/21/2015 Hep A, ped/adol, 2 dose 03/19/2012,04/29/2007 Hep B, adolescent or pediatric 03/18/2002 Hepatitis A - Adult 04/29/2007 IPV 04/29/2007, 2,03/18/2002,01/14 MMR 04/29/2007,03/17/2003 Meningococcal B, OMV 03/21/2020,03/19/2019 Meningococcal Conjugate MCV4 P (Menactra) 03/19/2019,10/21/2015 PPD 04/02/2019,03/19/2019 Pneumococcal Conjugate 7 Valent 03/17/2003,03/18,01/14/2002 Tdap 02/24/2013 Surgical History Surgery Date Site/Laterality Comments NO PAST SURGERIES UPPER ARM/ELBOW SURGERY UNLISTED Left Medical History Medical History Date Comments No known problems Family History Relation Status Comments Brother Alive Father Alive Maternal Grandfather Alive Maternal Grandmother Alive Mother Alive Paternal Grandfather enlarged he art Paternal Grandmother Alive Sister Alive Social History Tobacco Use Types Packs/Day Years Used Date Smoking Tobacco: Never Passive Smoke Exposure: Never Smokeless Tobacco: Never Tobacco Cessation:Counseling Given: Not Answered Alcohol Use Standard Drinks/Week Comments Yes 0 (1 standard drink = 0.6 oz pur e alcohol) social PHQ-2 Answer Date Recorded PHQ-2 Score 0 03/21/2020 Inadequate Housing Answer Date Recorded Social Determinants: Housing (Overall Score Help er) 0 05/01/2024 Sexually Active Control Partners Comments Never Sex and Gender Information Value Date Recorded Sex Assigned at Not on file Gender Identity Not on file Sexual Orientation Not on file Job Start Date Occupation Industry Not on file Not on file Not on file Obstetrics History Last Filed Vital Signs Vital Sign Reading Time Taken Comments Blood Pressure 134/87 05/01/2024 1:52 PM CDT Pulse 104 05/01/2024 1:52 PM CDT Temperature 36.6 C (97.8 F) 05/01/2024 1:52 PM CDT Respiratory Rate 16 05/01/2024 1:52 PM CDT Oxygen Saturation 99% 05/01/2024 1:52 PM CDT Inhaled Oxygen Concentration - - Weight 108.9 kg (240 lb) 05/01/2024 1:52 PM CDT Height 167.6 cm (5' 6 ) 05/01/2024 1:52 PM CDT Body Mass Index 38.74 05/01/2024 1:52 PM CDT Plan of Treatment Health Maintenance Due Date Last Done Comments Depression Screening 2013 Chlamydia and Gonorrhea Screening (if sexually active) 2019 Cervical Cancer Screening 2022 Pap Smear 2022 DTaP/Tdap/Td Vaccine (7 - Td or Tdap) 02/24/2023 02/24/2013, 04/29/2007, 03/17/2003, Additional history exists COVID-19 Vaccine ( - 2023- season) 2024 Influenza Vaccine (#1) 2024 Hepatitis B Vaccine Completed 03/17/2003, 06/17/2002, 03/18/2002, Additional history exists Pneumococcal Vaccine 0-49 Aged Out 2002, 03/18/2002, 01/14/2002 No longer eligible based on patient's age to complete this topic Hepatitis A Vaccine Completed 03/19/2012, 04/29/2007, 04/29/2007 HPV Vaccine Completed 05/03/2016, 12/03, 10/21/2015 Meningococcal Vaccine Completed 03/19/2019, 016 Meningococcal Serogroup B Vaccine Completed 03/21/2020, 03/19/2019 Care Teams Boot Turner Relationship Specialty Start Date End Date Pcp, No PCP - General 05/01/24 Pcp Outside [facility], Unknown NO KNOWN ADDRESS ON FILE 05/01/24 Naresh Vasques, BETTINAC [address] [address] Physician Etl Software Engineer- Medical 04/02/19
--- OUTSIDE RECORDS SUMMARY | 2024-09-19 14:34 | XMS_ITS | Referral Summary ---
Author Organization [facility] Address [address] [place] [address] Care Team Providers Care Senior Business Consultant Name Role Phone Pcp, No Primary Care Provider Unavailabl e Pcp Outside [facility], Unknown Unavailable Unavail able Naresh Vasques PA-C Unavailable [phone] Allergies No known active allergies Medications Medication [...] Pneumococcal Conjugate 7 Valent 03/17/2003,03/18,01/14/2002 Tdap 02/24/2013 Social History Tobacco Use Types Packs/Day Years [...] file Not on file Not on file Last Filed Vital Signs Vital Sign Reading [...] 05/01/2024 1:52 PM CDT Plan of Treatment Not on file Care Teams Senior Business Consultant Relationship Specialty Start Date End Date Pcp, No PCP - General 05/01/24 Pcp Outside [facility], Unknown NO KNOWN ADDRESS ON FILE 05/01/24 Naresh Vasques PA-C [address] [address] Physician Transit Operations Supervisor- Medical 04/02/19
[2024-09-19 14:40] VITALS: BP 119/69; PULSE 81; RESP 16; TEMP 36.7; O2SAT 100
--- NOTE | 2024-09-19 15:57 | ED_ITS ---
HPI - General Adult General Chief complaint: Back Pain/Injury Stated complaint: Back Pain Source: patient Mode of arrival: ambulatory Limitations: no limitations History of Present Illness HPI narrative: Patient presents for evaluation of left-sided back pain. Symptom onset 3 hours ago. She was walking when she felt a grabbing sensation over her left posterior ribs. Pain has been intermittent since that time. She rates her pain 8/10. She now also has pain adjacent to her thoracic spine on the left. Pain seems to occur with pain in the other location. When she flexes her neck down, pain is reproducible in the left side of her back. She has not tried taking anything for symptoms. She denies any shortness of breath, cough or respiratory symptoms. She denies any urinary symptoms. She recently had a benign cyst removed from her proximal left thigh. She has not had any calf pain, redness, swelling following her outpatient surgery. She is not on any exogenous estrogen. She does not smoke. 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 Related Data Home Medications ?Medication ?Instructions ?Recorded ?Confirmed ?Last Taken ?Type Vitamin D (with calcium) 09/19/24 Unknown History escitalopram oxalate 10 mg tablet mg 09/19/24 Unknown History vitamin M56-atbrk acid 09/19/24 Unknown History Allergies Allergy/AdvReac Type Severity Reaction Status Date / Time No Known Allergies Allergy Verified 09/19/24 14:35 Review of Systems Review of Systems: CONSTITUTIONAL: Denies fever, chills, or sweats. EYES: Denies visual changes, redness, or discharge. ENT: Denies rhinorrhea, congestion, sore throat, or otalgia. CARDIOVASCULAR: Denies chest pain, palpitations, or edema. RESPIRATORY: Denies cough or dyspnea. GASTROINTESTINAL: Denies abdominal pain, nausea, vomiting, or diarrhea. GENITOURINARY: Denies dysuria or hematuria. SKIN: Denies rash or itching. MUSCULOSKELETAL: Reports left-sided back pain. NEUROLOGIC: Denies headache, numbness, dizziness, or weakness. PSYCHIATRIC: Denies anxiety or depression. [facility] Past Medical History Medical History PCOS (polycystic ovarian syndrome) Congestion of nasal sinus Chills Fever Left knee injury Surgical History Surgical History H/O elbow surgery repair of fracture of left radial head with hardware Family History Family History Mother Family history non-contributory Social History Social History Smoking status: Never smoker Alcohol intake: current Substance use: never Substance use type: does not use Living arrangements: with family Occupation/Education: student Gender identity (if verbalized by the patient): Female Exam Narrative: GENERAL: Well-appearing, well-nourished, and in no acute distress. HEAD: Normocephalic, atraumatic. EYES: PERRLA and EOMI. ENT: Nares clear, no rhinorrhea or epistaxis. Mucous membranes moist. Oropharynx without tonsillar hypertrophy exudate or other lesions. Bilateral TMs pearly farris nonbulging NECK: Supple. No adenopathy or masses. No carotid bruits or JVD CHEST: Clear to auscultation. No respiratory distress. No wheezes rales or rhonchi HEART: Regular rate and rhythm. No murmur heard. Normal peripheral pulses. ABDOMEN: Soft, nontender, nondistended, normal active bowel sounds. BACK: There is no CVA tenderness. There is no tenderness over the left posterior ribs. There is no tenderness in the midline or paraspinous muscles of the thoracic spine. Pain is reproducible in the back with flexion of the neck with chin to chest movement EXTREMITIES: Normal range of motion. No edema. SKIN: Warm, dry, no rash. NEURO: No focal deficits. Alert and oriented x3. PSYCH: Normal mood and affect. Course Course Emergency Course: This is a 23-year-old female who presented for evaluation of left-sided back dandre n. Pain is reproducible with movement. Seems musculoskeletal in origin. Chest x-ray normal. No blood in urine to suggest kidney stone. She has no CVA tenderness. There is no evidence of infection in her urine. She was given Toradol. Her symptoms improved. Will discharge with ibuprofen and Flexeril. Follow-up with primary provider. Epsom salt baths and application of warm moist heat may help. Go to the emergency department for worsening symptoms. Patient in agreement plan of care. Level of Care: Express Care Visit Vital Signs Vital signs: Vital Signs Temperature 36.7 C 09/19/24 14:40 Pulse Rate 81 09/19/24 14:40 Respiratory Rate 16 09/19/24 14:40 Blood Pressure 119/69 09/19/24 14:40 Pulse Oximetry 100 09/19/24 14:40 Oxygen Delivery Room Air 09/19/24 14:40 Temperature 36.7 C 09/19/24 14:40 Pulse Rate 81 09/19/24 14:40 Respiratory Rate 16 09/19/24 14:40 Blood Pressure 119/69 09/19/24 14:40 Pulse Oximetry 100 09/19/24 14:40 Oxygen Delivery Room Air 09/19/24 14:40 Medical Decision Making Vital Signs Vital Signs: Vital Signs Temperature 36.7 C 09/19/24 14:40 Pulse Rate 81 09/19/24 14:40 Respiratory Rate 16 09/19/24 14:40 Blood Pressure 119/69 09/19/24 14:40 Pulse Oximetry 100 09/19/24 14:40 Oxygen Delivery Room Air 09/19/24 14:40 Temperature 36.7 C 09/19/24 14:40 Pulse Rate 81 09/19/24 14:40 Respiratory Rate 16 09/19/24 14:40 Blood Pressure 119/69 09/19/24 14:40 Pulse Oximetry 100 09/19/24 14:40 Oxygen Delivery Room Air 09/19/24 14:40 Lab Data Labs: Lab Results 09/19/24 Range/Units 16:15 POC Urine Color Mayelin POC Urine Clarity Cloudy POC Urine pH 7.0 POC Ur Specif [place] 1.020 POC Urine Protein Negative (Negative) POC Ur Glucose (UA) Negative (Negative) POC Urine Ketones Negative (Negative) POC Urine Blood Negative (Negative) POC Urine Nitrite Negative (Negative) POC Urine Bilirubin Negative (Negative) POC Urine Urobilinogen 1.0 POC U Leukocyte Esteras Negative (Negative) Imaging Data Radiologist's impression: CHEST RADIOGRAPH, PA AND LATERAL CLINICAL HISTORY: left sided back pain . COMPARISON: None available TECHNIQUE: PA and lateral views of the chest. FINDINGS The cardiomediastinal silhouette is unremarkable. The lungs are clear. Visualized osseous structures and soft tissues are unremarkable. IMPRESSION: No focal infiltrate or effusion. Discharge Plan Discharge Clinical Impression: Back spasm Patient Disposition: Home, Self-Care Condition: Stable Instructions: Antibiotic Form, Muscle Spasm (ED) Patient Language: Telugu Prescriptions: New ibuprofen 800 mg tablet 800 mg PO TID Qty: 30 0RF cyclobenzaprine 10 mg tablet 10 mg PO TID PRN (Reason: muscle spasm) Qty: 15 0RF No Action escitalopram oxalate 10 mg tablet Vitamin D (with calcium) vitamin T50-iogjz acid Follow-up/Referrals: Dawit Haynes MD [Physician] - Stand Alone Forms: Work/School Release IP Time of Disposition: 16:56
[2024-09-19] MEDS: KETOROLAC (*BKC) 60 MG/2 ML VIAL IM (16:01)
--- NOTE | 2024-09-19 16:07 | PC.NURSE ---
in br to obtain ua spec.
--- NOTE | 2024-09-19 16:09 | PC.NURSE ---
in xray 1600
[2024-09-19 16:18] LABS: EDUAAPPEAR Cloudy; EDUABILI Negative (Negative); EDUABLOOD Negative (Negative); EDUACOLOR1 Amber; EDUAGLUCOSE Negative (Negative); EDUAKETONE Negative (Negative); EDUALEUKO Negative (Negative); EDUANITRATE Negative (Negative); EDUAPROTEIN Negative (Negative)
== END 2024-09-19 17:00 | disposition home or self-care (01) ==
PROVIDERS: Emergency Provider Nurse Practitioner
DX: R25.2 Cramp and spasm (principal)
CPT/HCPCS: 71046; 81003; 96372; 99213; G0463; J1885

== ENCOUNTER 2025-02-10 10:43 | Emergency (ER) | payer OTHER, SELFPAY ==
--- OUTSIDE RECORDS SUMMARY | 2025-02-10 10:48 | XMS_ITS | Continuity of Care Document ---
Author Organization [facility] Address [address] [place] [address] Phone Care Team Providers Care Master Lay Out Specialist Name Role Phone Carley FREY, Ujjasia Unavailable Unavailable Procedures Procedure Date OFFICE/OUTPATIENT VISIT, [facility] Advance Directives Directive Yes / No Effective Date File Name No Information Encounters Encounter Description Practice Location Reason(s) For Visit Diagnoses Date Provider Providers Copied on Encounter OFFICE/OUTPATI ENT VISIT, [facility] /[facility], [address] [place] [address], [id number], tel:[phone] P [facility] General Medicine No Information Carley Carter. [address] [place] [address], [address], [place]. tel:[phone] [facility] /[facility], [address] [place] [address], [address], tel:[phone] [facility] No Information [facility]. [address] [place] [address], [id number], [place]. Family History Family Member Type Diagnosis Age At Onset No Information Immunizations Vaccine Date Status Comments HEP A VAC PED/ADOL administered Note: LA ; Source: New Immunization Record DTAP administered Note: RA ; Sour ce: New Immunization Record [id number], PED/ADL administer ed Note: LA ; Source: New Immunization Record INJECTABLE POLIOVIRUS administered Note: RA ; Source: New Immunization Record PCV7, PNEUMOCOCCAL CONJUGATE administered Note: LA ; Source: New Immunization Record DTAP administered Note: RA ; Sour ce: New Immunization Record [id number], PED/ADL administer ed Note: RA ; Source: New Immunization Record HIB AND HEP B COMBO administered Note: LA ; Source: New Immunization Record DTAP administered Note: LT ; Sour ce: New Immunization Record INJECTABLE POLIOVIRUS administered Note: LT ; Source: New Immunization Record HIB AND HEP B COMBO administered Note: RT ; Source: New Immunization Record HIB 3 DOSE SERIES administered Note: RT ; Source: New Immunization Record PCV7, PNEUMOCOCCAL CONJUGATE administered Note: RT ; Source: New Immunization Record DTAP administered Note: LT ; Sour ce: New Immunization Record INJECTABLE POLIOVIRUS administered Note: LT ; Source: New Immunization Record PCV7, PNEUMOCOCCAL CONJUGATE administered Note: LT ; Source: New Immunization Record DTAP administered Note: RT ; Sour ce: New Immunization Record INJECTABLE POLIOVIRUS administered Note: RT ; Source: New Immunization Record HIB AND HEP B COMBO administered Note: LT ; Source: New Immunization Record Payers Payer name Insurance type Covered green party ID Authorronaka tiantonette(s) [employer] Medicaid Medical MC [id number] Social History Type Description Quantity Date Captured Comments Sex Female Smoking Status No Information Chief Complaint And Reason For Visit No Information History Of Present Illness Encounter Date Complaint History Of Prese nt Illness No Information Instructions Date Instruction Additional Infor mation No Information Assessments Type Assessment Date No Information Patient Care Teams Name Effective Dates (start - stop) Status Members No Information
--- OUTSIDE RECORDS SUMMARY | 2025-02-10 10:48 | XMS_ITS | Clinical Summary ---
Author Organization [facility] Address [address] [place] [address] Care Team Providers Care Windows Phone Developer Name Role Phone Pcp, No Primary Care Provider Unavailabl e Pcp Outside [facility], Unknown Unavailable Unavail able Naresh Vasques PA-C Unavailable [phone] Allergies No known active allergies Medications azithromycin (ZITHROMAX) 250 MG tabletIndication s:Tonsillitis with exudate Take two tabs orally today and then DAY 2-5 take one tab each day 6 tablet 10/14/2019 Active Active Problems No known active problems Resolved Problems Problem Noted Date Diagnosed Date Resolved Date Tonsillitis with exudate 10/14/2019 Immunizations Immunization Administration Dates Next Due DTaP 04/29/2007, 3,06/17/2002,03/18,01/14/2002 [...] 05/01/2024 Sexually Active Control Partners Comments Never Comments No Sex and Gender Information Value Date Recorded Sex Assigned at Not on file Legal Sex Female 9:32 PM CDT Gender Identity Not on file Sexual Orientation Not on file Obstetrics History Last Filed [...] 1:52 PM CDT Height 167.6 cm (5' 6) 05/01/2024 1:52 PM CDT Body Mass Index 38.74 05/01/2024 1:52 PM CDT Plan of Treatment Health Maintenance Due Date Last Done Comments Depression Screening 2013 Chlamydia and Gonorrhea Screening (if sexually active) 2019 Cervical Cancer Screening 2022 Pap Smear 2022 DTaP/Tdap/Td Vaccine (7 - Td or Tdap) 02/24/2023 02/24/2013, 04/29/2007, 03/17/2003, Additional history exists COVID-19 Vaccine ( season) 2024 Influenza Vaccine (#1) 2025 Hepatitis B Vaccine Completed 03/17/2003, 06/17/2002, 03/18/2002, Additional history exists Pneumococcal Vaccine 0-49 Aged Out 2002, 03/18/2002, 01/14/2002 No longer eligible based on patient's age to complete this topic Hepatitis A Vaccine Completed 03/19/2012, 04/29/2007, 04/29/2007 HPV Vaccine Completed 05/03/2016, 12/03, 10/21/2015 Meningococcal Vaccine Completed 03/19/2019, 016 Meningococcal Serogroup B Vaccine Completed 03/21/2020, 03/19/2019 Insurance [facility] Care Teams Windows Phone Developer Relationship Specialty Start Date End Date Pcp, No PCP - General 05/01/24 Pcp Outside [facility], Unknown NO KNOWN ADDRESS ON FILE 05/01/24 Naresh Vasques, NIKKIE [address] [address] Physician Insulation Estimator- Medical 04/02/19
--- OUTSIDE RECORDS SUMMARY | 2025-02-10 10:48 | XMS_ITS | Referral Summary ---
Author Organization [address] Address [address] [facility] 5th [place] [address] Care Team Providers Care Drum Stock Clerk Name Role Phone LucioMaribel norwood SABRINA Primary Care Provider [phone] Encounters Date Type Department Care Team Description 12/22/2024 Results Follow-Up [facility] [address] [place] [address] Tiffanie Quach DO Vaginitis panel Vaginal 12/21/2024 10:46 AM CDT - 12/21/2024 11:59 PM CDT Hospital Encounter [facility] [address] [place] [address] Acute vaginitis Discharge Disposition: Discharge to home or self care 12/21/2024 10:15 AM CDT Office Visit [facility] [address] [place] [address] Tiffanie Quach DO Epidermoid cyst (Primary Dx); Acute vaginitis from Last 3 Months Allergies No known active allergies Medications cyanocobalamin (Vitamin B-12) 1,000 mcg tabletIndicati ons:Prevention of Vitamin B12 Deficiency Take 1 tablet (1,000 mcg total) by mouth daily Active cholecalcifero l (VITAMIN D-3) 2000 unit capsule Take 1 capsule (2,000 Units total) by mouth daily Active ibuprofen 200 mg tab/cap Take 2 tablet/capsule (400 mg total) by mouth every 6 (six) hours as needed for pain Active UNABLE TO FIND daily Med Name: myoinositol and dehiroinositol for PCOS Active traMADoL (ULTRAM) 50 mg tablet Take 1 tablet (50 mg total) by mouth every 6 (six) hours 10 tablet 5 Active Additional Information Patient not taking.Reported on 12/21/2024 escitalopram (LEXAPRO) 10 mg tabletIndicati ons:ANGEL (generalized anxiety disorder),Mild episode of recurrent major depressive disorder TAKE 1 TABLET(10 MG) BY MOUTH DAILY 90 tablet 5 Active Active Problems No known active problems Immunizations Immunization Administration Dates Next Due DTaP 04/29/2007, 3,06/17/2002,03/18/2002, [...] Types Packs/Day Years Used Date Smoking Tobacco: Every Day Cigarettes 0.3 8.5 Started: 08/22/2016 Smokeless Tobacco: Never Tobacco Cessation:Ready to Q uit: Not Asked; Counseling Given: Not Answered Comments:Still erin AUDIT-C Answer Date Recorded Q1: How often do you have a drink containing alc ohol? Monthly or less 09/30/2024 Q2: How many drinks containi ng alcohol do you have on a typical day when you are drinking? 1 or 2 09/30/2024 Q3: How often do you have si x or more drinks on one occasion? Never 09/30/2024 PHQ-2 Answer Date Recorded PHQ-2 Total Score (If total score is 3 or more points, staff should administer the PHQ-9) 0 06/30/2024 Personal Safety Answer Date Recorded Have you ever been in or are you currently in a harmful physical or emotional relationship or is someone making you feel afraid or unsafe? Denies 10/08/2024 Comments No Sex and Gender Information Value Date Recorded Sex Assigned at Not on file Legal Sex Female 10:23 AM CDT Gender Identity Female 05/19/2024 10:33 AM CDT Sexual Orientation Straight 05/19/2024 10 :33 AM CDT Occupation Industry Job Start Date Job End Date Not on file Not on file Not on file Not on file Last Filed Vital Signs Vital Sign Reading Time Taken Comments Blood Pressure 120/72 12/21/2024 10:14 AM CDT Pulse 65 10/08/2024 3:20 PM RISK MANAGER Temperature 36.4 C (97.6 F) 10/08/2024 2:50 PM RISK MANAGER Respiratory Rate 18 10/08/2024 3:20 PM RISK MANAGER Oxygen Saturation 98% 10/08/2024 3:20 PM RISK MANAGER Inhaled Oxygen Concentration - - Weight 110.2 kg (243 lb) 12/21/2024 10:14 AM CDT Height 168.9 cm (5' 6.5) 12/21/2024 10:14 AM CD T Body Mass Index 38.63 12/21/2024 10:14 AM CDT Plan of Treatment Not on file Medical Devices Implanted Type Area Reel Fed Printer Device Identifier Shelf Expiration Date Model / Serial / Lot 2 Screws Left: Elbow Procedures Procedure Name Priority Date/Time Associated Diagnosis Comments VAGINITIS PANEL Routine 12/21/2024 10:46 AM CDT Acute vaginitis VITAMIN B12 Routine 12/10/2024 12:44 PM CDT Vitamin B12 deficiency VITAMIN D 25 HYDROXY Routine 12/10/2024 12:44 PM CDT Vitamin D deficiency IRON PROFILE W/ IBC Routine 12/10/2024 1 2:42 PM CDT Anemia, unspecified type CBC WITH AUTO DIFFERENTIAL Routine 12/10/2024 12:38 PM CDT Anemia, unspecified type PAP WITH REFLEX TO HIGH RISK HPV Routine 08/13/2024 11:10 AM RISK MANAGER Screening for malignant neoplasm of the cervix from Last 3 Months or Most Recently Relevant to Health Maintenance Results * (ABNORMAL) Vaginitis panel Vaginal (12/21/2024 10:46 AM CDT) Bacterial Vaginosis Not Detected Not Detected Comment: A negative result does not preclude a possible infection. Results should be considered in conjunction with clinical presentation to determine the disease status. Testing performed by: [address] [address] Kathleen group Detected(A) Not Detected KACY Comment: Kathleen species can be present as commensal organisms in women; results should be considered in conjunction with clinical presentation to determine the disease status. Testing performed by: [address] [address] Kathleen glabrata/ krusei Not Detected Not Detected KACY Comment:Testing performed by : [address] [address] Trichomonas DNA Not Detected Not Detected KACY Comment:Testing performed by : [address] [address] Vaginal 12/21/2024 10:4 6 AM CDT 12/21/2024 8:27 PM CDT Tiffanie Quach DO LAB MICROBIOLOGY - GENE RAL ORDERABLES Final Result KACY [address] Department [place] [address] CH * Vitamin D 25 hydroxy (12/10/2024 12:44 PM CDT) Vitamin D 25-OH 38 30 - 100 ng/mL [facility] Comment: Vitamin D Status 25-OH Vitamin D: Deficiency: <20 ng/mL Insufficiency: 20 - 29 ng/mL Optimal: > or = 30 ng/mL For 25-OH Vitamin D testing on patients on D2-supplementation and patients for whom quantitation of D2 and D3 fractions is required, the QuestAssureD(TM) 25-OH VIT D, (D2,D3), LC/MS/MS is recommended: order code 35438 (patients >2yrs). See Note 1 Note 1 For additional information, please refer to http://education.Kid Bunch/faq/BHI892 (This link is being provided for informational/ educational purposes only.) Blood 12/10/2024 12:4 4 PM CDT 12/10/2024 12:45 PM CDT Narrative [facility] - 12/11/2024 4:34 AM CDT FASTING:YES FASTING: YES [facility] LAB BLOOD ORDERABLES Final Res ult Performing Organization Address City/[facility]/ZIP Co de Phone Number QUEST [facility] [address] [place] [address] * Vitamin B12 (12/10/2024 12:44 PM CDT) Vitamin B12 562 200 - 1,100 pg/mL [facility] Blood 12/10/2024 12:4 4 PM CDT 12/10/2024 12:45 PM CDT Narrative [facility] - 12/11/2024 4:34 AM CDT FASTING:YES FASTING: YES Carweez MOLECULAR SPECTROSCOPIST LAB BLOOD ORDERABLES Final Res ult QUEST [facility] [address] [place] [address] * (ABNORMAL) Iron profile w/ IBC (12/10/2024 12:42 PM CDT) Pathologist [facility] Iron 32(L) 40 - 190 mcg/dL [facility] TIBC 304 250 - 450 mcg/dL (calc) [facility] Iron saturation 11(L) 16 - 45 % (calc) [facility] Blood 12/10/2024 12:4 2 PM CDT 12/10/2024 12:43 PM CDT Narrative [facility] - 12/11/2024 4:58 AM CDT FASTING:YES FASTING: YES us Maribel Valdes MOLECULAR SPECTROSCOPIST LAB BLOOD ORDERABLES Final Res ult [facility] [address] [place] [address] * CBC with auto differential (12/10/2024 12:38 PM CDT) Pathologist [facility] WBC 8.4 3.8 - 10.8 Thousand/u L [facility] RBC, POC 4.24 3.80 - 5.10 Million/uL [facility] Hgb 12.7 11.7 - 15.5 g/dL [facility] Hct 38.4 35.0 - 45.0 % [facility] MCV 90.6 80.0 - 100.0 fL [facility] MCH 30.0 27.0 - 33.0 pg [facility] MCHC 33.1 32.0 - 36.0 g/dL [facility] Comment: For adults, a slight decrease in the calculated MCHC value (in the range of 30 to 32 g/dL) is most likely not clinically significant; however, it should be interpreted with caution in correlation with other red cell parameters and the patient's clinical condition. Rdw 12.6 11.0 - 15.0 % [facility] Platelets 337 140 - 400 Thousand/u L [facility] MPV 9.3 7.5 - 12.5 fL [facility] Neutrophils, abs 4,880 1,500 - 7,800 cells/uL [facility] Lymphocytes, abs 2,898 850 - 3,900 cells/uL [facility] Monocyte abs 420 200 - 950 cells/uL [facility] Eosinophils, abs 151 15 - 500 cells/uL [facility] Basophils, abs 50 0 - 200 cells/uL [facility] Neutrophils 58.1 % [facility] Lymphocyte pct 34.5 % [facility] Monocytes 5.0 % [facility] Eosinophils 1.8 % [facility] Basophils 0.6 % [facility] Blood 12/10/2024 12:3 8 PM CDT 12/10/2024 12:40 PM CDT Narrative [facility] - 12/11/2024 4:34 AM CDT FASTING:YES FASTING: YES us Maribel Valdes MOLECULAR SPECTROSCOPIST LAB BLOOD ORDERABLES Final Res ult [facility] [address] [place] [address] * Pap with reflex to High Risk HPV and Genotyping (Cytology Component) (08/13/2024 11:10 AM RISK MANAGER) Thin prep (Pap test) 08/13/2024 11:10 AM RISK MANAGER 08/13/2024 11:10 AM RISK MANAGER Narrative PATHOLOGY CH - 08/17/2024 3:25 PM RISK MANAGER [facility] Department of Pathology [address] [place] [address] Final Report Note to Patients: This report [...] and explain the details. Patient Name: EMBER THOMPSON Address: [address], [place] [id number] Gender: F : 2000 (Age: 23) Service: Location: N : [id number] [facility] #: [id number] Patient Type: [facility] SPECIMEN Taken: 08/13/2024 Received: 08/13/2024 Accessioned:: 08/14/2024 Reported: 08/17/2024 Physician(s): Naila Hinkle D.O. Diagnosis: SOURCE OF SPECIMEN Imaged Thinprep Pap Test w/ Reflex HPV - Power Hammer Operator Cytologic Material: STATEMENT OF ADEQUACY - Specimen satisfactory for interpretation; endocervical/transformation zone component absent or insufficient GENERAL CATEGORIZATION: - Negative for intraepithelial lesion or malignancy INTERPRETATION: - Predominance of coccobacilli consistent with shift in vaginal ivanna. Possible bacterial vaginosis VARUN James(ASCP)VARUN Huitron(ASCP) Report Electronically Reviewed and Signed Out By VARUN Huitron(ASCP) 08/17/2024 15:25:40Specimen(s) Received: A: Imaged Thinprep Pap Test w/ Reflex HPV - Power Hammer Operator Cytologic Material Clinical History: Last Menstrual Period: [...] determined by the Surgical Pathology Department at [facility] as part of an ongoing quality assurance monitor body program and in compliance with federally mandated [...] characteristics determined by the Surgical Pathology Department [facility]. It has not been cleared or approved by the U. S. Food and Drug Administration. Tiffanie Quach DO LAB CYTOLOGY ORDERABLES Final Result Performing Organization Address City/State/[place] [address] [place] [address] from Last 3 Months or Most Recently Relevant to Health Maintenance Insurance [facility] Care Teams Drum Stock Clerk Relationship Specialty Start Date End Date Maribel Valdes NP PCP - General Family Medicine 06/30/24
--- OUTSIDE RECORDS SUMMARY | 2025-02-10 10:48 | XMS_ITS | Clinical Summary ---
Author Organization [address] Address [address] [facility] 5th [place] [address] Care Team Providers Care Dependency Case Manager Name Role Phone Maribel Valdes SABRINA Primary Care Provider [phone] Allergies No known active allergies Medications cyanocobalamin [...] Active Active Problems No known active problems Encounters Date Type Department Care Team Description 12/22/2024 Results Follow-Up [address] [address] Tiffanie Quach, DO Vaginitis panel Vaginal 12/21/2024 10:46 AM CDT - 12/21/2024 11:59 PM CDT Hospital Encounter [facility] [address] [place] [address] Acute vaginitis Discharge Disposition: Discharge to home or self care 12/21/2024 10:15 AM CDT Office Visit [facility] [address] [place] [address] Tiffanie Quach DO Epidermoid cyst (Primary Dx); Acute vaginitis from Last 3 Months Immunizations Immunization Administration Dates Next Due DTaP [...] Left head of radial fracture screws present MASS EXCISION 09/11/2024 Left thigh FRACTURE SURGERY Medical History Medical History Date Comments GERD (gastroesophageal reflux disease) controlled with diet Depression Polycystic ovarian syndrome PCOS (polycystic ovarian syndrome) not on any medications yet Anxiety Mass of left thigh Last menstrual period (LMP) > 10 days ago ended 08/25/24 Obesity Headache migraines occasi onally Family History Medical History Relation Name Comments [...] Not Asked; Counseling Given: Not Answered Comments:Still vapes AUDIT-C Answer [...] on file Not on file Obstetrics History Para Term AB IAB SAB Ectopic Multiple Livin g Live Births 0 0 0 0 0 0 0 0 0 0 0 Last Filed Vital Signs Vital Sign Reading Time Taken Comments Blood Pressure 120/72 12/21/2024 10:14 AM CDT Pulse 65 10/08/2024 3:20 PM REGIONAL ACCOUNT EXECUTIVE Temperature 36.4 C (97.6 F) 10/08/2024 2:50 PM REGIONAL ACCOUNT EXECUTIVE Respiratory Rate 18 10/08/2024 3:20 PM REGIONAL ACCOUNT EXECUTIVE Oxygen Saturation 98% 10/08/2024 3:20 PM REGIONAL ACCOUNT EXECUTIVE Inhaled Oxygen Concentration - - Weight 110.2 kg (243 lb) 12/21/2024 10:14 AM CDT Height 168.9 cm (5' 6.5) 12/21/2024 10:14 AM CD T Body Mass Index 38.63 12/21/2024 10:14 AM CDT Plan of Treatment Health Maintenance Due Date Last Done Comments Hepatitis C Screening 2001 Pneumococcal vaccine <65 (1 of 1 - PPSV23) 2007 03/17/2003, 03/18/2002, 01/14/2002 Regular Well Visit/Exam 18-64 2019 DTaP/Tdap/Td Vaccine (7 - Td or Tdap) 02/24/2023 02/24/2013, 04/29/2007, 03/17/2003, Additional history exists Influenza Vaccine (#1) 2025 Depression Screening 06/30/2025 06/30/2024 Cervical Cancer Screening 08/13/2025 08/13/2024 Hepatitis B Screening Completed 03/17/2003 , 06/17/2002, 03/18/2002, Additional history exists HPV Vaccines Completed 05/03/2016, 12/03, 10/21/2015 Meningococcal B Vaccine Completed 03/21/2020, 03/19 Varicella Vaccines Completed 08/15/2021, 07/15/2021 Medical Devices Implanted Type Area Florist Helper Device Identifier Shelf Expiration Date Model / [...] HIGH RISK HPV Routine 08/13/2024 11:10 AM REGIONAL ACCOUNT EXECUTIVE Screening for malignant neoplasm of the cervix from Last 3 Months or Most Recently Relevant to Health Maintenance Results * (ABNORMAL) Vaginitis panel Vaginal (12/21/2024 10:46 AM CDT) Pathologist [facility] Bacterial Vaginosis Not Detected Not Detected Comment: A negative result does not preclude a possible infection. Results should be considered in conjunction with clinical presentation to determine the disease status. Testing performed by: [facility], [address] [place] [address]., [address] Kathleen group Detected(A) Not Detected KACY Comment: Kathleen species can be present as commensal organisms in women; results should be considered in conjunction with clinical presentation to determine the disease status. Testing performed by: [facility], [address] [place] [address]., [address] Kathleen glabrata/ krusei Not Detected Not Detected KACY Comment:Testing performed by : [facility], [address] [place] [address]., [address] Trichomonas DNA Not Detected Not Detected KACY Comment:Testing performed by : [facility], [address] [place] [address]., [address] Vaginal 12/21/2024 10:4 6 AM CDT 12/21/2024 8:27 PM CDT Tiffanie Quach DO LAB MICROBIOLOGY - GENE RAL ORDERABLES Final Result KACY [address] Department [place] [address] CH * Vitamin D 25 hydroxy (12/10/2024 12:44 PM CDT) Pathologist [facility] Vitamin D 25-OH 38 30 - 100 ng/mL [facility] Comment: Vitamin D Status 25-OH Vitamin D: Deficiency: <20 ng/mL Insufficiency: 20 - 29 ng/mL Optimal: > or = 30 ng/mL For 25-OH Vitamin D testing on patients on D2-supplementation and patients for whom quantitation of D2 and D3 fractions is required, the QuestAssureD(TM) 25-OH VIT D, (D2,D3), LC/MS/MS is recommended: order code 10678 (patients >2yrs). See Note 1 Note 1 For additional information, please refer to http://education.Tu Ot[employer] Super/faq/YRF718 (This link is being provided for informational/ educational purposes only.) Blood 12/10/2024 12:4 4 PM CDT 12/10/2024 12:45 PM CDT Narrative [facility] - 12/11/2024 4:34 AM CDT FASTING:YES FASTING: YES [facility] LAB BLOOD ORDERABLES Final Res ult Performing Organization Address [facility] de Phone Number [facility] [address] [place] [address] * Vitamin B12 (12/10/2024 12:44 PM CDT) Pathologist [facility] Vitamin B12 562 200 - 1,100 pg/mL [facility] Blood 12/10/2024 12:4 4 PM CDT 12/10/2024 12:45 PM CDT Narrative [facility] - 12/11/2024 4:34 AM CDT FASTING:YES FASTING: YES [facility] BLOOD ORDERABLES Final Res ult Performing Organization Address [facility] de Phone Number [facility]ST [facility] [address] [place] [address] * (ABNORMAL) Iron profile w/ IBC (12/10/2024 12:42 PM CDT) Iron 32(L) 40 - 190 mcg/dL [facility] TIBC 304 250 - 450 mcg/dL (calc) [facility] Iron saturation 11(L) 16 - 45 % (calc) [facility] Blood 12/10/2024 12:4 2 PM CDT 12/10/2024 12:43 PM CDT Narrative [facility] - 12/11/2024 4:58 AM CDT FASTING:YES FASTING: YES us Maribel Valdes NP LAB BLOOD ORDERABLES Final Res ult [facility] [address] [place] [address] * CBC with auto differential (12/10/2024 12:38 PM CDT) [facility] WBC 8.4 3.8 - 10.8 Thousand/u L [...] CDT FASTING:YES FASTING: YES us Maribel Valdes NP LAB BLOOD ORDERABLES Final Res ult [facility] [address] [address] * Pap with reflex to High Risk HPV and Genotyping (Cytology Component) (08/13/2024 11:10 AM REGIONAL ACCOUNT EXECUTIVE) Thin prep (Pap test) 08/13/2024 11:10 AM REGIONAL ACCOUNT EXECUTIVE 08/13/2024 11:10 AM REGIONAL ACCOUNT EXECUTIVE Narrative PATHOLOGY CH - 08/17/2024 3:25 PM REGIONAL ACCOUNT EXECUTIVE [facility] Department of Pathology [address] [place] [address] Final Report Note to Patients: This report [...] the details. Patient Name: EMBER THOMPSON Address: [address], [place] [address] Gender: F : 2000 (Age: 23) Service: Location: [facility] #: [id number] Patient Type: [facility] SPECIMEN Taken: 08/13/2024 Received: 08/13/2024 Accessioned:: 08/14/2024 Reported: 08/17/2024 Physician(s): Naila Hinkle D.O. Diagnosis: SOURCE OF SPECIMEN Imaged Thinprep Pap Test w/ Reflex HPV - Dough Cutter Cytologic Material: STATEMENT OF ADEQUACY - Specimen satisfactory for interpretation; endocervical/transformation zone component absent or insufficient GENERAL CATEGORIZATION: - Negative for intraepithelial lesion or malignancy INTERPRETATION: - Predominance of coccobacilli consistent with shift in vaginal ivanna. Possible bacterial vaginosis VARUN James(ASCP)VARUN Huitron(ASCP) Report Electronically Reviewed and Signed Out By LEE HuitronASCP) 08/17/2024 15:25:40Specimen(s) Received: A: Imaged Thinprep Pap Test w/ Reflex HPV - Dough Cutter Cytologic Material Clinical History: Last Menstrual Period: [...] determined by the Surgical Pathology Department at [facility] as part of an ongoing quality improvement engineer program and in compliance with federally mandated [...] characteristics determined by the Surgical Pathology Department [facility]. It has not been cleared or approved by the U. S. Food and Drug Administration. Tiffanie Quach DO LAB CYTOLOGY ORDERABLES Final Result PATHOLOGY [address] [place] [address] from Last 3 Months or Most Recently Relevant to Health Maintenance Insurance [facility] Member Subscriber Plan / Payer (Ef fective 2021-Present) Name:Ember Thompson Relation to Subscriber:Child Name:TACOS THOMPSON Date of :[birth year]99 (Home) Address: [address] [place] [address] Payer ID:[id number] (NAIC) Type:[facility] HMO/PPO Address: [place] [id number] [facility] Member Subscriber Plan / Payer (Ef fective 2021-Present) Name:Ember Thompson Relation to Subscriber:Child Name:TACOS THOMPSON Date of :[birth year]99 (Home) Address: [address] [place] [address] Payer ID:[id number] (NAIC) Type:[facility] HMO/PPO Address: [place] [phone] Care Teams Dependency Case Manager Relationship Specialty Start Date End Date Maribel Valdes NP PCP - General Family Medicine 06/30/24
--- OUTSIDE RECORDS SUMMARY | 2025-02-10 10:50 | XMS_ITS | Continuity of Care Document ---
Author Organization [facility] Address [address] [place] [phone] Phone Care Team Providers Care Records Management Analyst Name Role Phone Carley FREY, Ujj[place] Unavailable Unavailable Procedures Procedure Date OFFICE/OUTPATIENT VISIT, [facility] Advance Directives Directive Yes / No Effective Date File Name No Information Encounters Encounter Description Practice Location Reason(s) For Visit Diagnoses Date Provider Providers Copied on Encounter OFFICE/OUTPATI ENT VISIT, [facility] /[facility], [address] [place] [address], [address], tel:[phone] [facility] General Medicine No Information Carley Carter. [address] [place] [address], [address], [place]. tel:[phone] [facility] /[facility], [address] [place] [address], [address], tel:[phone] [facility] CONV No Information [facility]. [address] [place] [address], [address], [place]. Family History Family Member Type Diagnosis Age At Onset No Information Immunizations Vaccine Date Status Comments HEP A VAC PED/ADOL administered Note: LA ; Source: New Immunization Record DTAP administered Note: RA ; Sour ce: New Immunization Record [id number], PED/ADL administer ed Note: LA ; Source: New Immunization Record INJECTABLE POLIOVIRUS administered Note: RA ; Source: New Immunization Record PCV7, PNEUMOCOCCAL CONJUGATE administered Note: LA ; Source: New Immunization Record DTAP administered Note: RA ; Sour ce: New Immunization Record [id number], PED/ADL administer ed Note: RA ; Source: [...] Record Payers Payer name Insurance type Covered democrat ID Authorronaka tiantonette(s) [employer] Medicaid Medical MC [id number] Social History Type Description Quantity Date Captured [...]
--- NOTE | 2025-02-10 10:54 | ED_ITS ---
HPI - General Adult General Chief complaint: Urogenital-Female Stated complaint: Lump On Throat, STD Testing Time Seen by Provider: 02/10/25 11:00 Mode of arrival: ambulatory Limitations: no limitations History of Present Illness HPI narrative: 24-year-old female presents with concern for sore throat and STD concern. Reports she had intercourse with a new partner on February 05, she is not aware of any known exposure. She reports about 3 days ago she noticed a painful spot in the back of her throat. She denies upper respiratory infection symptoms. She denies dysuria, frequency, urgency, vaginal discharge or vaginal itching MD complaint: Sore throat Related Data Home Medications ?Medication ?Instructions ?Recorded ?Confirmed ?Last Taken ?Type Vitamin D (with calcium) 09/19/24 Unknown History escitalopram oxalate 10 mg tablet mg 09/19/24 Unknown History vitamin [id number] acid 09/19/24 Unknown History Allergies Allergy/AdvReac Type Severity Reaction Status Date / Time No Known Allergies Allergy Verified 02/10/25 10:54 Review of Systems Review of Systems: CONSTITUTIONAL: Denies malaise, chills, sweats, or fever. ENT: Denies rhinorrhea, congestion, sinus pain, otalgia. Reports sore throat. GASTROINTESTINAL: Denies abdominal pain, nausea, vomiting, diarrhea, bloody, or mucous stools. GENITOURINARY: Denies dysuria, frequency, urgency, hematuria or vaginal discharge. SKIN: Denies rash or itching. All systems reviewed & are unremarkable except as noted in HPI and below PMFSH Past Medical History Medical History PCOS (polycystic ovarian syndrome) Congestion of nasal sinus Chills Fever Left knee injury Surgical History Surgical History H/O elbow surgery repair of fracture of left radial head with hardware Family History Family History Mother Family history non-contributory Social History Social History Smoking status: Never smoker Alcohol intake: current Substance use: never Substance use type: does not use Living arrangements: with family Occupation/Education: student Gender identity (if verbalized by the patient): Female Comments At time of signature, agree with nursing past medical, surgical, social and family history. There is no relevant family history pertinent to the presenting complaint Exam Narrative: GENERAL: Well-appearing, well-nourished, and in no acute distress. HEAD: Normocephalic, atraumatic. EYES: PERRLA, sclera clear, and EOMI. No nystagmus. ENT: Nares clear. Mucous membranes moist. TM pearly farris with sharp light reflex bilaterally; no tragal tenderness. Oropharynx without erythema, small yellow lesion noted to the right tonsil. Tonsils not enlarged and without exudate. NECK: Supple. No lymphadenopathy. CHEST: No respiratory distress. Speaks in full sentences. HEART: Regular rate and rhythm. SKIN: Warm, dry, no visible rash. NEURO: Alert and oriented x3. PSYCH: Tearful Course Course Emergency Course: Patient does not want treatment at this time, she will wait for results. Patient is aware of, understands and agrees to treatment plan. Anticipatory guidance given. Patient agrees to follow-up as directed and is aware of reasons to seek care at the emergency department. Portions of this record may have been created with voice recognition software Level of Care: Express Care Visit Vital Signs Vital signs: Reviewed. Medical Decision Making MDM Narrative Medical decision making narrative: The patient was evaluated by myself in the express care. History is obtained from patient who is an independent historian and physical exam was performed.? Available medical records were reviewed at this time. ? Exam findings show no acute concerns or changes; patient is non-toxic appearing and is in no distress. Patient is appropriate for outpatient treatment and follow-up. ? I have evaluated and discussed social determinants of health with the patient that could potentially impact subsequent diagnosis and treatment plans. ? Differential diagnosis and treatment plan were discussed with the patient. Mack lange agrees with discussion and after shared medical decision making agrees with plan of care. All questions were answered to the patient's satisfaction. Critical Care Time Critical Care Time Critical Care Time: No Discharge Plan Discharge Clinical Impression: Screen for STD (sexually transmitted disease) Patient Disposition: Home Condition: Stable Instructions: Safe Sex Practices (ED) Additional Instructions: You have been tested for potential gonorrhea, chlamydia, and trichomoniasis today. You will receive a phone call in 2-3 days with the results of today's testing. It is very important that you avoid unprotected intercourse during treatment and for 7 days AFTER any necessary TREATMENT is complete and until your partner(s) have been treated. Please encourage your partner(s) to seek testing and treatment. When you have been exposed to sexually transmitted infections, it is important that you seek comprehensive testing, since we do not provide testing for all sexually transmitted infections. Some infections can have no symptoms, but cause serious health problems. Contact your health care provider or report to the emergency department if: You have genital swelling or pain, or unusual bleeding. You have joint pain, rash, swollen lymph nodes or night sweats. You are severe abdominal pain. You have a fever. Symptoms do not go away or they get worse even after treatment. You have bleeding or pain during sex. Your rapid strep swab was negative today at [facility]. A throat culture will be sent to the laboratory for further testing. If the test is positive, you will receive a phone call within 48 hours and an appropriate antibiotic will be initiated at that time. -Alternate Tylenol and Motrin per package directions for fever or pain. -Antihistamine medication such as Benadryl at night and Zyrtec during the day can help improve symptoms. -Eat and drink things that are easy to swallow, like tea or soup, or popsicles to suck on. -Oral rinses such as: Salt water gargles and/or may use topical anesthetic (eg. Chloraseptic spray) or lozenges to relieve dryness or throat pain). -Frequent hand washing or hand round kiln drawer is one of the best ways to prevent spread of infection. -Follow up with primary care provider in 2-3 days if condition is not improving; or seek ER visit if you have trouble breathing, cannot drink enough fluids, have muffled voice, difficulty opening your mouth, or severe swelling. Patient Language: Divehi Prescriptions: No Action escitalopram oxalate 10 mg tablet Vitamin D (with calcium) vitamin [id number] acid Follow-up/Referrals: PHYSICIAN NOT ON STAFF,NONSTAFF [Primary Care Provider] - Time of Disposition: 11:13
[2025-02-10 10:56] VITALS: BP 151/94; PULSE 96; RESP 18; TEMP 36.3; O2SAT 100
[2025-02-10 11:14] LABS: EDSTREPNEGPOS1 Negative (Negative)
[2025-02-10 20:49] LABS: Trichomonas Vag PCR NOT DETECTED (NOT DETECTE)
[2025-02-15 07:08] LABS: HSV-1 DNA Negative (Negative); HSV-2 DNA Negative (Negative)
== END 2025-02-10 11:16 | disposition home or self-care (01) ==
PROVIDERS: Emergency Provider Nurse Practitioner
DX: Z11.3 Encounter for screening for infections with a predominantly sexual mode of transmission (principal); E28.2 Polycystic ovarian syndrome
CPT/HCPCS: 86615; 87081; 87491; 87529; 87591; 87661; 87880; 99213; G0463